=== PATIENT | female | born 1955 | race African-American/Black ===

== ENCOUNTER 2018-06-25 23:20 | Observation (INO) ==
[2018-06-26] MEDS ORDERED: PANTOPRAZOLE 40 MG VIAL IV STA (00:16)
[2018-06-26] MEDS ORDERED: SODIUM CHLORIDE 0.9% 500 ML IV STA (00:16)
[2018-06-26] MEDS ORDERED: ONDANSETRON 4 MG/2 ML VIAL IV STA (00:16)
[2018-06-26] MEDS ORDERED: MECLIZINE 25 MG TABLET PO STA (00:16)
[2018-06-26] MEDS ORDERED: ALUM/MAG/SIMETH/LIDO VISC 1:1 30 ML BOTTLE PO STA (00:16)
[2018-06-26 00:42] LABS: Basophils % 0.4 % (0.0-0.8); Eosinophils # 0.2 10*3/uL (0.0-0.87); Eosinophils % 2.4 % (0.00-10.9); Hematocrit 41.3 VOL% (35.7-47.0); Immature Granulocytes % 0.7 %; Immature Granulocytes Absolute 0.07 #; Lymphocytes # 2.1 10*3/uL (1.4-4.0); Lymphocytes % 21.4 % (21.3-54.2); Mean Corpuscular HGB Conc 31.5 GM/DL (32-36); Mean Corpuscular Hemoglobin 29 PG (27-34); Mean Corpuscular Volume 90.6 FL (87-102); Mean Platelet Volume 9.8 FL (9.6-12.0); Monocytes # 0.7 10*3/uL (0.11-0.8); Monocytes % 7.6 % (1.7-12.7); Neutrophils # 6.6 10*3/uL (1.4-7.4); Neutrophils % 67.5 % (38.7-73.9); Platelet Count 187 T/CUMM (130-400); Red Blood Count 4.56 MC/CUMM (3.8-5.5); Red Cell Distribution Width 12.5 % (9.3-17.3); White Blood Count 9.8 T/CUMM (4-12)
[2018-06-26 00:50] LABS: INR 0.9; PT Patient Result 9.8 SECS
[2018-06-26 01:02] LABS: Albumin 3.5 G/DL (3.4-5.0); Bilirubin,Total 0.4 MG/DL (0.2-1.0); Calcium 8.9 MG/DL (8.5-10.1); Potassium 3.5 MMOL/L (3.5-5.1); Total Protein 7.6 G/DL (6.4-8.3)
[2018-06-26 01:18] LABS: Apearance,Urine Slightly Hazy (Clear); Bacteria,Urine Occasional /HPF (Few); Bilirubin,Urine Negative (Negative); Blood, Urine Negative (Negative); Glucose,Urine (UA) Negative (Negative); Ketones,Urine Negative (Negative); Mucus,Urine Occasional /LPF (Occasional); Nitrite,Urine Negative (Negative); Protein,Urine Negative; RBC,Urine <1 /HPF (0-4); Squamous Epithelial Cell,Urine Occasional /HPF (0-10); Urine Color Straw (Yellow); Urine Specific Gravity 1.003 (1.001-1.035); Urine Urobilinogen < 2.0 EU/DL (0.2-1.0); WBC,Urine 1 /HPF (0-6)
[2018-06-26] MEDS ORDERED: GLUCAGON 1 MG VIAL IM PRN (02:30)
[2018-06-26] MEDS ORDERED: ONDANSETRON 4 MG/2 ML VIAL IV PRN (02:30)
[2018-06-26] MEDS ORDERED: ACETAMINOPHEN 325 MG TABLET PO PRN (02:30)
[2018-06-26] MEDS ORDERED: DEXTROSE 50% 25 GM/50 ML VIAL IV PRN (02:30)
[2018-06-26] MEDS ORDERED: MECLIZINE 25 MG TABLET PO PRN (02:44)
[2018-06-26] MEDS: SODIUM CHLORIDE 0.9% 1,000 ML IV SCH ×2 (03:33→21:41)
[2018-06-26 07:28] LABS: Basophils % 0.4 % (0.0-0.8); Eosinophils # 0.2 10*3/uL (0.0-0.87); Eosinophils % 2.6 % (0.00-10.9); Hematocrit 38.2 VOL% (35.7-47.0); Hemoglobin 12.4 GM/DL (12.0-16.0); Immature Granulocytes % 0.4 %; Immature Granulocytes Absolute 0.03 #; Lymphocytes % 36.5 % (21.3-54.2); Mean Corpuscular HGB Conc 32.5 GM/DL (32-36); Mean Corpuscular Hemoglobin 29 PG (27-34); Mean Corpuscular Volume 90.5 FL (87-102); Mean Platelet Volume 10.1 FL (9.6-12.0); Monocytes # 0.7 10*3/uL (0.11-0.8); Monocytes % 8.2 % (1.7-12.7); Neutrophils # 4.2 10*3/uL (1.4-7.4); Neutrophils % 51.9 % (38.7-73.9); Platelet Count 179 T/CUMM (130-400); Red Blood Count 4.22 MC/CUMM (3.8-5.5); Red Cell Distribution Width 12.5 % (9.3-17.3); White Blood Count 8.2 T/CUMM (4-12)
[2018-06-26 08:00] LABS: Calcium 8.8 MG/DL (8.5-10.1); Osmolality,Calculated 280.5 MOS/KG (273-304); Potassium 4.1 MMOL/L (3.5-5.1); Thyroid Stimulating Hormone 1.57 uIU/ml (0.358-3.74); VLDL CHOLESTEROL 39.6 MG/DL
[2018-06-26] MEDS: INSULIN LISPRO 100 UNIT/ML SUBCUT SCH ×4 (08:44→21:35)
[2018-06-26] MEDS: ENOXAPARIN 40 MG/0.4 ML SYRINGE SUBCUT SCH (08:44)
[2018-06-26] MEDS: PANTOPRAZOLE 40 MG TABLET PO SCH (16:54)
[2018-06-26] MEDS ORDERED: GABAPENTIN 100 MG CAPSULE PO SCH (21:00)
[2018-06-26] MEDS ORDERED: ATORVASTATIN 20 MG TABLET PO SCH (21:00)
[2018-06-26] MEDS ORDERED: ATORVASTATIN 80 MG TABLET PO SCH (21:00)
[2018-06-26] MEDS: SERTRALINE 50 MG TABLET PO SCH (21:34)
[2018-06-26] MEDS: TICAGRELOR 90 MG TABLET PO SCH (21:38)
[2018-06-27 06:43] LABS: Basophils % 0.5 % (0.0-0.8); Eosinophils # 0.2 10*3/uL (0.0-0.87); Eosinophils % 3.1 % (0.00-10.9); Hematocrit 41.1 VOL% (35.7-47.0); Hemoglobin 13.4 GM/DL (12.0-16.0); Immature Granulocytes % 0.3 %; Immature Granulocytes Absolute 0.02 #; Lymphocytes # 2.1 10*3/uL (1.4-4.0); Lymphocytes % 32.5 % (21.3-54.2); Mean Corpuscular HGB Conc 32.6 GM/DL (32-36); Mean Corpuscular Hemoglobin 30 PG (27-34); Mean Corpuscular Volume 90.7 FL (87-102); Mean Platelet Volume 10.1 FL (9.6-12.0); Monocytes # 0.5 10*3/uL (0.11-0.8); Monocytes % 7.5 % (1.7-12.7); Neutrophils # 3.7 10*3/uL (1.4-7.4); Neutrophils % 56.1 % (38.7-73.9); Platelet Count 178 T/CUMM (130-400); Red Blood Count 4.53 MC/CUMM (3.8-5.5); Red Cell Distribution Width 12.3 % (9.3-17.3); White Blood Count 6.5 T/CUMM (4-12)
[2018-06-27 07:04] LABS: Calcium 8.9 MG/DL (8.5-10.1); Osmolality,Calculated 285.4 MOS/KG (273-304); Potassium 3.9 MMOL/L (3.5-5.1)
[2018-06-27] MEDS ORDERED: NITROGLYCERIN SL 0.4 MG TABLET SL PRN (08:57)
[2018-06-27] MEDS ORDERED: CITALOPRAM 20 MG TABLET PO SCH (09:00)
[2018-06-27] MEDS ORDERED: ALBUTEROL 2.5 MG/3 ML NEB RESP TX PRN (09:30)
[2018-06-27] MEDS: INSULIN LISPRO 100 UNIT/ML SUBCUT SCH ×5 (09:52→21:27)
[2018-06-27] MEDS: ENOXAPARIN 40 MG/0.4 ML SYRINGE SUBCUT SCH (09:57)
[2018-06-27] MEDS: LORazepam 0.5 MG TABLET PO SCH ×2 (09:57→21:24)
[2018-06-27] MEDS: TRIAMCINOLONE 0.1% CREAM 15 GM TUBE TOP SCH ×2 (09:57→21:24)
[2018-06-27] MEDS: BUDESONIDE/FORMOTEROL 160-4.5 INHALER 6 GM INH SCH ×2 (09:57→21:24)
[2018-06-27] MEDS: ISOSORBIDE MONONITRATE 30 MG TABLET PO SCH (09:58)
[2018-06-27] MEDS: OMEGA 3 ACID ETHYL ESTERS 1 GM CAPSULE PO SCH (09:58)
[2018-06-27] MEDS: PANTOPRAZOLE 40 MG TABLET PO SCH (09:58)
[2018-06-27] MEDS: TICAGRELOR 90 MG TABLET PO SCH ×2 (09:58→21:25)
[2018-06-27] MEDS: MONTELUKAST 10 MG TABLET PO SCH (09:58)
[2018-06-27] MEDS: ATORVASTATIN 80 MG TABLET PO SCH (09:58)
[2018-06-27] MEDS: CITALOPRAM 20 MG TABLET PO SCH (09:58)
[2018-06-27] MEDS: sitaGLIPtin 25 MG TABLET PO SCH (09:58)
[2018-06-27] MEDS: TOPIRAMATE 25 MG TABLET PO SCH ×2 (09:59→21:24)
[2018-06-27] MEDS: ASPIRIN CHEW 81 MG TABLET PO SCH (09:59)
[2018-06-27] MEDS: INSULIN NPH/REGULAR 70/30 100 UNIT/ML SUBCUT SCH (09:59)
[2018-06-27] MEDS: LISINOPRIL 20 MG TABLET PO SCH (10:02)
[2018-06-27] MEDS: GABAPENTIN 300 MG CAPSULE PO SCH ×3 (10:02→21:29)
[2018-06-27] MEDS: SODIUM CHLORIDE 0.9% 1,000 ML IV SCH (12:29)
[2018-06-27] MEDS: MECLIZINE 25 MG TABLET PO SCH ×2 (16:42→21:24)
[2018-06-27] MEDS ORDERED: INSULIN NPH/REGULAR 70/30 100 UNIT/ML SUBCUT SCH (20:00)
[2018-06-27] MEDS: SERTRALINE 50 MG TABLET PO SCH (21:24)
[2018-06-28] MEDS: SODIUM CHLORIDE 0.9% 1,000 ML IV SCH (02:30)
[2018-06-28 08:22] VITALS: BP 148/91
[2018-06-28] MEDS ORDERED: sitaGLIPtin 100 MG TABLET PO SCH (09:01)
[2018-06-28] MEDS: ATORVASTATIN 80 MG TABLET PO SCH (09:20)
[2018-06-28] MEDS: TICAGRELOR 90 MG TABLET PO SCH (09:20)
[2018-06-28] MEDS: MONTELUKAST 10 MG TABLET PO SCH (09:20)
[2018-06-28] MEDS: PANTOPRAZOLE 40 MG TABLET PO SCH (09:20)
[2018-06-28] MEDS: LISINOPRIL 20 MG TABLET PO SCH (09:20)
[2018-06-28] MEDS: CITALOPRAM 20 MG TABLET PO SCH (09:20)
[2018-06-28] MEDS: OMEGA 3 ACID ETHYL ESTERS 1 GM CAPSULE PO SCH (09:21)
[2018-06-28] MEDS: MECLIZINE 25 MG TABLET PO SCH (09:21)
[2018-06-28] MEDS: TOPIRAMATE 25 MG TABLET PO SCH (09:21)
[2018-06-28] MEDS: LORazepam 0.5 MG TABLET PO SCH (09:21)
[2018-06-28] MEDS: ISOSORBIDE MONONITRATE 30 MG TABLET PO SCH (09:22)
[2018-06-28] MEDS: ASPIRIN CHEW 81 MG TABLET PO SCH (09:22)
[2018-06-28] MEDS: GABAPENTIN 300 MG CAPSULE PO SCH (09:22)
[2018-06-28] MEDS: INSULIN NPH/REGULAR 70/30 100 UNIT/ML SUBCUT SCH (09:22)
[2018-06-28] MEDS: TRIAMCINOLONE 0.1% CREAM 15 GM TUBE TOP SCH (09:23)
[2018-06-28] MEDS: BUDESONIDE/FORMOTEROL 160-4.5 INHALER 6 GM INH SCH (09:23)
[2018-06-28] MEDS: INSULIN LISPRO 100 UNIT/ML SUBCUT SCH (09:23)
[2018-06-28] MEDS: ENOXAPARIN 40 MG/0.4 ML SYRINGE SUBCUT SCH (09:32)
[2018-06-28] MEDS: sitaGLIPtin 25 MG TABLET PO SCH (09:33)
== END 2018-06-28 11:03 | disposition home or self-care (01) ==
LOC: EDBD → EDUNIT# → N.ED 23:20 → N.EDINP 23:20 → N.4E 06-26 02:57
PROVIDERS: ADMIT Internal Medicine; ATTEND Internal Medicine

== ENCOUNTER 2019-09-09 14:02 | Inpatient (IN) ==
[2019-09-09] MEDS ORDERED: ASPIRIN CHEW 81 MG TABLET PO STA (14:19)
[2019-09-09] MEDS ORDERED: NITROGLYCERIN SL 0.4 MG TABLET SL STA (14:19)
[2019-09-09] MEDS ORDERED: METOPROLOL TARTRATE 5 MG/5 ML VIAL IV STA (14:20)
[2019-09-09 14:39] LABS: Basophils % 0.3 % (0.0-0.8); Eosinophils # 0.2 10*3/uL (0.0-0.87); Eosinophils % 2.3 % (0.00-10.9); Hematocrit 47.2 VOL% (35.7-47.0); Hemoglobin 15.5 GM/DL (12.0-16.0); Immature Granulocytes % 0.4 %; Immature Granulocytes Absolute 0.03 #; Lymphocytes # 2.8 10*3/uL (1.4-4.0); Lymphocytes % 34.8 % (21.3-54.2); Mean Corpuscular HGB Conc 32.8 GM/DL (32-36); Mean Corpuscular Volume 88.9 FL (87-102); Mean Platelet Volume 9.6 FL (9.6-12.0); Monocytes % 6.1 % (1.7-12.7); Neutrophils % 56.1 % (38.7-73.9); Platelet Count 217 T/CUMM (130-400); Red Blood Count 5.31 MC/CUMM (3.8-5.5); Red Cell Distribution Width 12.3 % (9.3-17.3); White Blood Count 7.9 T/CUMM (4-12)
[2019-09-09 14:54] LABS: Albumin 4.1 G/DL (3.4-5.0); Bilirubin,Total 0.5 MG/DL (0.2-1.0); Calcium 9.7 MG/DL (8.5-10.1); Osmolality,Calculated 278.7 MOS/KG (273-304); Total Protein 8.9 G/DL (6.4-8.3)
[2019-09-09] MEDS ORDERED: ONDANSETRON 4 MG/2 ML VIAL IV PRN (15:51)
[2019-09-09] MEDS ORDERED: DOCUSATE SODIUM 100 MG CAPSULE PO PRN (15:51)
[2019-09-09] MEDS ORDERED: ACETAMINOPHEN 325 MG TABLET PO PRN (15:51)
[2019-09-09] MEDS ORDERED: hydrALAZINE 20 MG/1 ML VIAL IV PRN (16:57)
[2019-09-09 17:03] LABS: Risk Ratio 6.05; VLDL CHOLESTEROL 53.2 MG/DL
[2019-09-09] MEDS ORDERED: NITROGLYCERIN SL 0.4 MG TABLET SL PRN ×2 (17:06→17:25)
[2019-09-09 17:10] LABS: Thyroid Stimulating Hormone 2.59 uIU/ml (0.358-3.74)
[2019-09-09] MEDS ORDERED: DEXTROSE 50% 25 GM/50 ML VIAL IV PRN (17:14)
[2019-09-09] MEDS ORDERED: GLUCAGON 1 MG VIAL IM PRN (17:14)
[2019-09-09] MEDS ORDERED: ALBUTEROL 2.5 MG/3 ML NEB RESP TX PRN (17:25)
[2019-09-09] MEDS: PANTOPRAZOLE 40 MG TABLET PO SCH (17:32)
[2019-09-09 20:49] LABS: Apearance,Urine CLEAR (Clear); Bacteria,Urine Occasional /HPF (Few); Bilirubin,Urine Negative (Negative); Blood, Urine Negative (Negative); Glucose,Urine (UA) Negative (Negative); Hyaline Casts,Urine 1 /LPF (0-3); Ketones,Urine Negative (Negative); Mucus,Urine Occasional /LPF (Occasional); Nitrite,Urine Negative (Negative); Protein,Urine Negative; RBC,Urine 2 /HPF (0-4); Squamous Epithelial Cell,Urine Occasional /HPF (0-10); Urine Color Yellow (Yellow); Urine Specific Gravity 1.011 (1.001-1.035); Urine Urobilinogen < 2.0 EU/DL (0.2-1.0); WBC,Urine 1 /HPF (0-6)
[2019-09-09] MEDS: INSULIN REGULAR 100 UNIT/ML SUBCUT SCH (21:23)
[2019-09-09] MEDS: TICAGRELOR 90 MG TABLET PO SCH (21:35)
[2019-09-09] MEDS: BUDESONIDE/FORMOTEROL 160-4.5 INHALER 6 GM INH SCH (21:35)
[2019-09-09] MEDS: GABAPENTIN 300 MG CAPSULE PO SCH (21:35)
[2019-09-09] MEDS: TOPIRAMATE 25 MG TABLET PO SCH (21:35)
[2019-09-09] MEDS: METOPROLOL TARTRATE 50 MG TABLET PO SCH (21:35)
[2019-09-10 06:43] LABS: Basophils % 0.3 % (0.0-0.8); Eosinophils # 0.2 10*3/uL (0.0-0.87); Hematocrit 41.9 VOL% (35.7-47.0); Hemoglobin 13.9 GM/DL (12.0-16.0); Immature Granulocytes % 0.1 %; Immature Granulocytes Absolute 0.01 #; Lymphocytes # 2.9 10*3/uL (1.4-4.0); Lymphocytes % 37.3 % (21.3-54.2); Mean Corpuscular HGB Conc 33.2 GM/DL (32-36); Mean Platelet Volume 9.9 FL (9.6-12.0); Monocytes % 6.8 % (1.7-12.7); Neutrophils % 52.5 % (38.7-73.9); Platelet Count 216 T/CUMM (130-400); Red Blood Count 4.71 MC/CUMM (3.8-5.5); Red Cell Distribution Width 12.4 % (9.3-17.3); White Blood Count 7.8 T/CUMM (4-12)
[2019-09-10 06:58] LABS: Calcium 9.2 MG/DL (8.5-10.1); Osmolality,Calculated 290.3 MOS/KG (273-304)
[2019-09-10] MEDS: INSULIN REGULAR 100 UNIT/ML SUBCUT SCH ×4 (08:57→21:16)
[2019-09-10] MEDS: BUDESONIDE/FORMOTEROL 160-4.5 INHALER 6 GM INH SCH ×2 (08:57→21:16)
[2019-09-10] MEDS: MULTIVITAMIN (CENTRUM) TABLET PO SCH (08:59)
[2019-09-10] MEDS: TICAGRELOR 90 MG TABLET PO SCH ×2 (08:59→20:49)
[2019-09-10] MEDS: METOPROLOL TARTRATE 50 MG TABLET PO SCH ×2 (09:00→20:49)
[2019-09-10] MEDS: ATORVASTATIN 80 MG TABLET PO SCH (09:00)
[2019-09-10] MEDS ORDERED: LOSARTAN 50 MG TABLET PO SCH (09:00)
[2019-09-10] MEDS: GABAPENTIN 300 MG CAPSULE PO SCH ×2 (09:00→20:49)
[2019-09-10] MEDS: TOPIRAMATE 25 MG TABLET PO SCH ×2 (09:01→20:49)
[2019-09-10] MEDS: SERTRALINE 50 MG TABLET PO SCH (09:01)
[2019-09-10] MEDS: PANTOPRAZOLE 40 MG TABLET PO SCH (09:02)
[2019-09-10] MEDS: ASPIRIN EC 81 MG TABLET PO SCH (09:18)
[2019-09-10] MEDS: LIRAGLUTIDE SUBCUT SCH (09:18)
[2019-09-10] MEDS: INSULIN DEGLUDEC SUBCUT SCH (09:18)
[2019-09-10] MEDS ORDERED: GLUCAGON 1 MG VIAL IM PRN (11:05)
[2019-09-10] MEDS ORDERED: DEXTROSE 10% 250 ML BAG IV PRN (11:05)
[2019-09-10] MEDS: LOSARTAN 50 MG TABLET PO SCH (20:49)
[2019-09-11] MEDS: BUDESONIDE/FORMOTEROL 160-4.5 INHALER 6 GM INH SCH (08:30)
[2019-09-11] MEDS: INSULIN DEGLUDEC SUBCUT SCH (08:31)
[2019-09-11] MEDS: ASPIRIN EC 81 MG TABLET PO SCH (08:31)
[2019-09-11] MEDS: METOPROLOL TARTRATE 50 MG TABLET PO SCH (08:31)
[2019-09-11] MEDS: PANTOPRAZOLE 40 MG TABLET PO SCH (08:31)
[2019-09-11] MEDS: TOPIRAMATE 25 MG TABLET PO SCH (08:31)
[2019-09-11] MEDS: LOSARTAN 50 MG TABLET PO SCH (08:31)
[2019-09-11] MEDS: LIRAGLUTIDE SUBCUT SCH (08:31)
[2019-09-11] MEDS: SERTRALINE 50 MG TABLET PO SCH (08:32)
[2019-09-11] MEDS: ATORVASTATIN 80 MG TABLET PO SCH (08:32)
[2019-09-11] MEDS: GABAPENTIN 300 MG CAPSULE PO SCH (08:32)
[2019-09-11] MEDS: TICAGRELOR 90 MG TABLET PO SCH (08:32)
[2019-09-11] MEDS: MULTIVITAMIN (CENTRUM) TABLET PO SCH (08:32)
[2019-09-11] MEDS: INSULIN REGULAR 100 UNIT/ML SUBCUT SCH (08:34)
[2019-09-11] MEDS ORDERED: amLODIPine 5 MG TABLET PO SCH (09:00)
[2019-09-11 11:49] VITALS: BP 140/76
== END 2019-09-11 12:11 | disposition home or self-care (01) | DRG 313 ==
LOC: EDBD → EDUNIT# → N.ED 14:02 → N.EDINP 15:51 → N.TELES 16:10
PROVIDERS: ADMIT Hospitalist; ATTEND Hospitalist

== ENCOUNTER 2020-07-18 11:38 | Observation (INO) ==
[2020-07-18] MEDS ORDERED: NITROGLYCERIN SL 0.4 MG TABLET SL PRN ×2 (11:52→13:52)
[2020-07-18] MEDS ORDERED: NITROGLYCERIN 2% OINT 1 INCH/GM PACK TOP STA (11:52)
[2020-07-18] MEDS ORDERED: FUROSEMIDE 40 MG/4 ML VIAL IV STA (11:54)
[2020-07-18 12:34] LABS: Basophils # 0.1 10*3/uL (0.0-0.2); Basophils % 0.6 % (0.0-0.8); Eosinophils # 0.2 10*3/uL (0.0-0.87); Eosinophils % 2.8 % (0.00-10.9); Hematocrit 43.2 VOL% (35.7-47.0); Hemoglobin 14.5 GM/DL (12.0-16.0); Immature Granulocytes % 0.5 %; Immature Granulocytes Absolute 0.04 #; Lymphocytes # 2.4 10*3/uL (1.4-4.0); Lymphocytes % 29.3 % (21.3-54.2); Mean Corpuscular HGB Conc 33.6 GM/DL (32-36); Mean Corpuscular Volume 89.8 FL (87-102); Mean Platelet Volume 9.9 FL (9.6-12.0); Monocytes % 6.3 % (1.7-12.7); Neutrophils % 60.5 % (38.7-73.9); Platelet Count 214 T/CUMM (130-400); Red Blood Count 4.81 MC/CUMM (3.8-5.5); Red Cell Distribution Width 12.5 % (9.3-17.3); White Blood Count 8.3 T/CUMM (4-12)
[2020-07-18 13:09] LABS: Albumin 3.7 G/DL (3.4-5.0); Bilirubin,Total 0.7 MG/DL (0.2-1.0); Calcium 9.4 MG/DL (8.5-10.1); Osmolality,Calculated 289.4 MOS/KG (273-304); Total Protein 8.5 G/DL (6.4-8.3)
[2020-07-18 13:23] LABS: INR 0.9; Partial Thromboplastin Time 25.9 SECS (23.9-33.8)
[2020-07-18 13:26] LABS: Troponin I < 0.015 NG/ML (0.00-0.045)
[2020-07-18] MEDS ORDERED: ACETAMINOPHEN 325 MG TABLET PO PRN (13:50)
[2020-07-18] MEDS ORDERED: DEXTROSE 50% 25 GM/50 ML VIAL IV PRN (13:50)
[2020-07-18] MEDS ORDERED: ONDANSETRON 4 MG/2 ML VIAL IV PRN (13:50)
[2020-07-18] MEDS ORDERED: GLUCAGON 1 MG VIAL IM PRN (13:50)
[2020-07-18] MEDS ORDERED: MONTELUKAST 10 MG TABLET PO PRN (13:52)
[2020-07-18] MEDS ORDERED: METHOCARBAMOL 750 MG TABLET PO PRN (13:52)
[2020-07-18] MEDS ORDERED: INSULIN REGULAR 100 UNIT/ML IV STA (14:02)
[2020-07-18 14:30] LABS: Bacteria,Urine Occasional /HPF (Few); Bilirubin,Urine Negative (Negative); Blood, Urine Negative (Negative); Glucose,Urine (UA) >=500 mg/dL (Negative); Ketones,Urine Negative (Negative); Nitrite,Urine Negative (Negative); Protein,Urine Negative; RBC,Urine 2 /HPF (0-4); Squamous Epithelial Cell,Urine Occasional /HPF (0-10); Urine Appearance CLEAR (Clear); Urine Color Colorless (Yellow); Urine Specific Gravity 1.009 (1.001-1.035); Urine Urobilinogen < 2.0 EU/DL (0.2-1.0); WBC,Urine 3 /HPF (0-6)
[2020-07-18] MEDS: ENOXAPARIN 40 MG/0.4 ML SYRINGE SUBCUT SCH (14:45)
[2020-07-18] MEDS: SODIUM CHLORIDE 0.9% 1,000 ML IV SCH (14:46)
[2020-07-18] MEDS: INSULIN LISPRO 100 UNIT/ML SUBCUT SCH ×2 (16:19→21:10)
[2020-07-18] MEDS: NITROGLYCERIN 2% OINT 1 INCH/GM PACK TOP SCH (17:48)
[2020-07-18] MEDS ORDERED: ATORVASTATIN 80 MG TABLET PO SCH (21:00)
[2020-07-18] MEDS: PANTOPRAZOLE 40 MG TABLET PO SCH (21:09)
[2020-07-18] MEDS: SACUBITRIL/VALSARTAN 49-51 MG TABLET PO SCH (21:09)
[2020-07-18] MEDS: GABAPENTIN 300 MG CAPSULE PO SCH (21:09)
[2020-07-19] MEDS: NITROGLYCERIN 2% OINT 1 INCH/GM PACK TOP SCH ×3 (01:43→14:33)
[2020-07-19] MEDS: SODIUM CHLORIDE 0.9% 1,000 ML IV SCH (02:35)
[2020-07-19 05:33] LABS: Basophils % 0.4 % (0.0-0.8); Eosinophils # 0.3 10*3/uL (0.0-0.87); Hematocrit 45.4 VOL% (35.7-47.0); Hemoglobin 15.1 GM/DL (12.0-16.0); Immature Granulocytes % 0.8 %; Immature Granulocytes Absolute 0.07 #; Lymphocytes # 3.3 10*3/uL (1.4-4.0); Lymphocytes % 35.6 % (21.3-54.2); Mean Corpuscular HGB Conc 33.3 GM/DL (32-36); Mean Corpuscular Volume 89.4 FL (87-102); Mean Platelet Volume 9.9 FL (9.6-12.0); Monocytes % 6.4 % (1.7-12.7); Neutrophils % 53.8 % (38.7-73.9); Platelet Count 234 T/CUMM (130-400); Red Blood Count 5.08 MC/CUMM (3.8-5.5); Red Cell Distribution Width 12.3 % (9.3-17.3); White Blood Count 9.1 T/CUMM (4-12)
[2020-07-19 05:59] LABS: Calcium 9.5 MG/DL (8.5-10.1); Osmolality,Calculated 288.1 MOS/KG (273-304); Risk Ratio 9.43; VLDL CHOLESTEROL 150.2 MG/DL
[2020-07-19 06:07] LABS: Eosinophils 3 % (0-10); Lymphocytes 39 % (20-55); Platelet Estimate Adequate; Segmented Neutrophils 54 % (50-85); Total Cells Counted 100
[2020-07-19] MEDS ORDERED: DIAZEPAM 5 MG TABLET PO ONE (08:09)
[2020-07-19] MEDS ORDERED: POTASSIUM CHLORIDE RIDER 10 MEQ in PREMIX 1 EACH IV PRN (08:09)
[2020-07-19] MEDS ORDERED: MAGNESIUM SULF RIDER 2 GM in PREMIX 1 EACH IV PRN (08:09)
[2020-07-19] MEDS ORDERED: diphenhydrAMINE CAP 25 MG CAPSULE PO ONE (08:09)
[2020-07-19] MEDS: CETIRIZINE 10 MG TABLET PO SCH (08:38)
[2020-07-19] MEDS: SERTRALINE 50 MG TABLET PO SCH (08:38)
[2020-07-19] MEDS: SACUBITRIL/VALSARTAN 49-51 MG TABLET PO SCH ×2 (08:38→21:49)
[2020-07-19] MEDS: NEBIVOLOL 10 MG TABLET PO SCH (08:38)
[2020-07-19] MEDS: GABAPENTIN 300 MG CAPSULE PO SCH ×2 (08:38→21:49)
[2020-07-19] MEDS: ASCORBIC ACID 500 MG TABLET PO SCH (08:39)
[2020-07-19] MEDS: INSULIN NPH/REGULAR 70/30 100 UNIT/ML SUBCUT SCH (08:39)
[2020-07-19] MEDS: ASPIRIN EC 81 MG TABLET PO SCH (08:39)
[2020-07-19] MEDS: PANTOPRAZOLE 40 MG TABLET PO SCH ×2 (08:39→21:50)
[2020-07-19] MEDS: CLOPIDOGREL 75 MG TABLET PO SCH (08:39)
[2020-07-19] MEDS: INSULIN LISPRO 100 UNIT/ML SUBCUT SCH ×4 (08:40→21:50)
[2020-07-19] MEDS ORDERED: LIDOCAINE 1% 20 ML VIAL ONE (08:52)
[2020-07-19] MEDS ORDERED: HEPARIN/NACL 0.9% 2 UNITS/ML 1,000 ML IV ONE (08:52)
[2020-07-19] MEDS: sitaGLIPtin 100 MG TABLET PO SCH (08:56)
[2020-07-19] MEDS ORDERED: MIDAZOLAM 2 MG/2 ML VIAL ONE ×2 (09:05→09:27)
[2020-07-19] MEDS ORDERED: fentaNYL 100 MCG/2 ML VIAL ONE (09:05)
[2020-07-19] MEDS ORDERED: BIVALIRUDIN 250 MG VIAL IV ONE (09:38)
[2020-07-19] MEDS ORDERED: HEPARIN/NACL 0.9% 2 UNITS/ML 500 ML IV ONE (09:58)
[2020-07-19] MEDS ORDERED: CLOPIDOGREL 75 MG TABLET ONE (10:19)
[2020-07-19] MEDS: SODIUM CHLORIDE 0.45% 1,000 ML IV SCH ×2 (13:45→21:50)
[2020-07-19] MEDS: FENOFIBRATE 160 MG TABLET PO SCH (14:09)
[2020-07-19] MEDS: ISOSORBIDE MONONITRATE 30 MG TABLET PO SCH (14:09)
[2020-07-19] MEDS: ENOXAPARIN 40 MG/0.4 ML SYRINGE SUBCUT SCH (14:09)
[2020-07-19] MEDS ORDERED: ROSUVASTATIN 20 MG TABLET PO SCH (21:00)
[2020-07-20 05:40] LABS: Basophils % 0.3 % (0.0-0.8); Eosinophils # 0.3 10*3/uL (0.0-0.87); Hematocrit 40.3 VOL% (35.7-47.0); Hemoglobin 13.6 GM/DL (12.0-16.0); Immature Granulocytes % 0.5 %; Immature Granulocytes Absolute 0.05 #; Lymphocytes # 2.7 10*3/uL (1.4-4.0); Lymphocytes % 28.1 % (21.3-54.2); Mean Corpuscular HGB Conc 33.7 GM/DL (32-36); Monocytes % 7.4 % (1.7-12.7); Neutrophils % 60.7 % (38.7-73.9); Platelet Count 201 T/CUMM (130-400); Red Blood Count 4.53 MC/CUMM (3.8-5.5); Red Cell Distribution Width 12.5 % (9.3-17.3); White Blood Count 9.6 T/CUMM (4-12)
[2020-07-20 05:59] LABS: Calcium 8.8 MG/DL (8.5-10.1); Osmolality,Calculated 282.8 MOS/KG (273-304)
[2020-07-20 06:00] LABS: Calcium 8.8 MG/DL (8.5-10.1)
[2020-07-20] MEDS: SODIUM CHLORIDE 0.45% 1,000 ML IV SCH (06:15)
[2020-07-20 08:02] VITALS: BP 159/72
[2020-07-20] MEDS: CLOPIDOGREL 75 MG TABLET PO SCH (09:20)
[2020-07-20] MEDS: INSULIN NPH/REGULAR 70/30 100 UNIT/ML SUBCUT SCH (09:20)
[2020-07-20] MEDS: INSULIN LISPRO 100 UNIT/ML SUBCUT SCH (09:20)
[2020-07-20] MEDS: NEBIVOLOL 10 MG TABLET PO SCH (09:21)
[2020-07-20] MEDS: CETIRIZINE 10 MG TABLET PO SCH (09:21)
[2020-07-20] MEDS: GABAPENTIN 300 MG CAPSULE PO SCH (09:21)
[2020-07-20] MEDS: ASCORBIC ACID 500 MG TABLET PO SCH (09:21)
[2020-07-20] MEDS: ASPIRIN EC 81 MG TABLET PO SCH (09:21)
[2020-07-20] MEDS: PANTOPRAZOLE 40 MG TABLET PO SCH (09:21)
[2020-07-20] MEDS: sitaGLIPtin 100 MG TABLET PO SCH (09:21)
[2020-07-20] MEDS: ISOSORBIDE MONONITRATE 30 MG TABLET PO SCH (09:21)
[2020-07-20] MEDS: FENOFIBRATE 160 MG TABLET PO SCH (09:22)
[2020-07-20] MEDS: SERTRALINE 50 MG TABLET PO SCH (09:22)
[2020-07-20] MEDS: SACUBITRIL/VALSARTAN 49-51 MG TABLET PO SCH (09:22)
== END 2020-07-20 11:47 | disposition home health service (06) ==
LOC: EDBD → EDUNIT# → N.EDINP 11:38 → N.ED 11:38 → N.TELES 15:09
PROVIDERS: ADMIT Family Medicine; ATTEND Family Medicine
PROC: CLCCHCL (ICD-10-PCS; 2020-07-19 09:15)

== ENCOUNTER 2021-11-09 14:28 | Inpatient (IN) ==
[2021-11-09] MEDS ORDERED: FUROSEMIDE 100 MG/10 ML VIAL IV STA (15:22)
[2021-11-09] MEDS ORDERED: ALBUTEROL/IPRATROPIUM 3 ML NEB RESP TX STA (15:22)
[2021-11-09 15:35] LABS: Basophils % 0.2 % (0.0-0.8); Eosinophils # 0.1 10*3/uL (0.0-0.87); Eosinophils % 0.5 % (0.00-10.9); Hematocrit 48.7 VOL% (35.7-47.0); Hemoglobin 16.1 GM/DL (12.0-16.0); Immature Granulocytes % 0.5 %; Immature Granulocytes Absolute 0.07 #; Lymphocytes % 19.9 % (21.3-54.2); Mean Corpuscular HGB Conc 33.1 GM/DL (32-36); Mean Corpuscular Volume 90.7 FL (87-102); Mean Platelet Volume 10.8 FL (9.6-12.0); Monocytes % 6.1 % (1.7-12.7); Neutrophils % 72.8 % (38.7-73.9); Platelet Count 224 T/CUMM (130-400); Red Blood Count 5.37 MC/CUMM (3.8-5.5); Red Cell Distribution Width 12.4 % (9.3-17.3); White Blood Count 14.9 T/CUMM (4-12)
[2021-11-09 15:41] LABS: INR 0.9; Osmolality,Calculated 275.5 MOS/KG (273-304); PT Patient Result 10.4 SECS (10.5-12.0); Partial Thromboplastin Time 25.4 SECS (23.8-32.1); Potassium 4.3 MMOL/L (3.5-5.1); Total Protein 8.7 G/DL (6.4-8.2)
[2021-11-09] MEDS ORDERED: cefTRIAXone 1,000 MG in SODIUM CHLORIDE 0.9% 100 ML IV STA (16:47)
[2021-11-09] MEDS ORDERED: SODIUM CHLORIDE 0.9% 1,000 ML IV STA (16:47)
[2021-11-09 17:12] LABS: Bacteria,Urine Occasional /HPF (Few); Mucus,Urine Occasional /LPF (Occasional); RBC,Urine 1 /HPF (0-4); Squamous Epithelial Cell,Urine Occasional /HPF (0-10)
[2021-11-09 17:14] LABS: Glucose,Urine (UA) Negative (Negative); Protein,Urine Negative; Urine Appearance Clear (Clear); Urine Color Yellow (Yellow); Urine Specific Gravity 1.015 (1.001-1.035)
[2021-11-09 17:15] LABS: Bilirubin,Urine Negative (Negative); Blood, Urine Negative (Negative); Ketones,Urine Negative (Negative); Nitrite,Urine Positive (Negative); Urine Urobilinogen 0.2 EU/DL (<2.0)
[2021-11-09] MEDS ORDERED: MORPHINE 4 MG/1 ML VIAL IV PRN (20:11)
[2021-11-09] MEDS ORDERED: hydrALAZINE 20 MG/1 ML VIAL IV PRN (20:11)
[2021-11-09] MEDS ORDERED: ONDANSETRON 4 MG/2 ML VIAL IV PRN (20:11)
[2021-11-09] MEDS ORDERED: ACETAMINOPHEN 325 MG TABLET PO PRN (20:11)
[2021-11-09] MEDS ORDERED: GLUCAGON 1 MG VIAL IM PRN (20:11)
[2021-11-09] MEDS ORDERED: MONTELUKAST 10 MG TABLET PO PRN (20:16)
[2021-11-09] MEDS ORDERED: NITROGLYCERIN SL 0.4 MG TABLET SL PRN (20:16)
[2021-11-09] MEDS ORDERED: DEXTROSE 10% 250 ML BAG IV PRN (20:28)
[2021-11-09 21:27] LABS: Thyroid Stimulating Hormone 2.64 uIU/ml (0.358-3.74)
[2021-11-09] MEDS: ROSUVASTATIN 20 MG TABLET PO SCH (22:05)
[2021-11-09] MEDS: APIXABAN 5 MG TABLET PO SCH (22:05)
[2021-11-09] MEDS: INSULIN REGULAR 100 UNIT/ML SUBCUT SCH (22:05)
[2021-11-09] MEDS: SACUBITRIL/VALSARTAN 49-51 MG TABLET PO SCH (22:05)
[2021-11-09] MEDS: GABAPENTIN 300 MG CAPSULE PO SCH (22:05)
[2021-11-09] MEDS: AZITHROMYCIN INJ 500 MG in SODIUM CHLORIDE 0.9% 250 ML IV SCH (22:05)
[2021-11-09] MEDS: TOPIRAMATE 25 MG TABLET PO SCH (22:05)
[2021-11-10] MEDS: ALBUTEROL 2.5 MG/3 ML NEB RESP TX SCH ×4 (00:55→19:26)
[2021-11-10 04:45] LABS: Basophils # 0.1 10*3/uL (0.0-0.2); Basophils % 0.4 % (0.0-0.8); Eosinophils # 0.1 10*3/uL (0.0-0.87); Hematocrit 42.5 VOL% (35.7-47.0); Hemoglobin 14.4 GM/DL (12.0-16.0); Immature Granulocytes % 0.3 %; Immature Granulocytes Absolute 0.04 #; Lymphocytes # 4.2 10*3/uL (1.4-4.0); Lymphocytes % 34.3 % (21.3-54.2); Mean Corpuscular HGB Conc 33.9 GM/DL (32-36); Mean Corpuscular Volume 88.9 FL (87-102); Monocytes % 8.6 % (1.7-12.7); Neutrophils % 55.4 % (38.7-73.9); Platelet Count 182 T/CUMM (130-400); Red Blood Count 4.78 MC/CUMM (3.8-5.5); Red Cell Distribution Width 12.3 % (9.3-17.3); White Blood Count 12.2 T/CUMM (4-12)
[2021-11-10 05:15] LABS: Bilirubin,Total 0.7 MG/DL (0.20-1.00); Osmolality,Calculated 275.4 MOS/KG (273-304); Potassium 3.4 MMOL/L (3.5-5.1); Risk Ratio 4.5; Total Protein 7.8 G/DL (6.4-8.2); VLDL Cholesterol 61.2 MG/DL
[2021-11-10] MEDS: INSULIN REGULAR 100 UNIT/ML SUBCUT SCH ×4 (07:39→21:14)
[2021-11-10] MEDS ORDERED: POTASSIUM CHLORIDE RIDER 10 MEQ/100 ML PREMIX IV PRN (08:20)
[2021-11-10] MEDS ORDERED: MAGNESIUM SULF RIDER 2 GM/50 ML PREMIX IV PRN (08:20)
[2021-11-10] MEDS ORDERED: SODIUM CHLORIDE 0.45% 1,000 ML IV SCH (08:30)
[2021-11-10] MEDS: FUROSEMIDE 40 MG/4 ML VIAL IV SCH ×2 (08:47→16:40)
[2021-11-10] MEDS: ASPIRIN EC 81 MG TABLET PO SCH (08:48)
[2021-11-10] MEDS: NEBIVOLOL 10 MG TABLET PO SCH (08:48)
[2021-11-10] MEDS: ISOSORBIDE MONONITRATE 30 MG TABLET PO SCH (08:49)
[2021-11-10] MEDS: SACUBITRIL/VALSARTAN 49-51 MG TABLET PO SCH ×2 (08:49→21:59)
[2021-11-10] MEDS: GABAPENTIN 300 MG CAPSULE PO SCH ×2 (08:49→21:14)
[2021-11-10] MEDS: PANTOPRAZOLE 40 MG TABLET PO SCH (08:50)
[2021-11-10] MEDS: ASCORBIC ACID 500 MG TABLET PO SCH (08:50)
[2021-11-10] MEDS: CLOPIDOGREL 75 MG TABLET PO SCH (08:50)
[2021-11-10] MEDS: TOPIRAMATE 25 MG TABLET PO SCH ×2 (08:50→22:14)
[2021-11-10] MEDS ORDERED: diphenhydrAMINE CAP 25 MG CAPSULE PO ONE (12:30)
[2021-11-10] MEDS ORDERED: DIAZEPAM 5 MG TABLET PO ONE (12:30)
[2021-11-10] MEDS ORDERED: POTASSIUM CHLORIDE 20 MEQ TABLET PO PRN (12:39)
[2021-11-10] MEDS ORDERED: HEPARIN/NACL 0.9% 2 UNITS/ML 2,000 UNIT/1,000 ML BAG IV ONE (13:13)
[2021-11-10] MEDS ORDERED: LIDOCAINE 1% 20 ML VIAL ONE (13:13)
[2021-11-10] MEDS ORDERED: MIDAZOLAM 2 MG/2 ML VIAL ONE (13:19)
[2021-11-10] MEDS ORDERED: fentaNYL 100 MCG/2 ML VIAL ONE (13:19)
[2021-11-10] MEDS: SERTRALINE 50 MG TABLET PO SCH (15:25)
[2021-11-10] MEDS: FENOFIBRATE 160 MG TABLET PO SCH (15:25)
[2021-11-10] MEDS: cefTRIAXone 1,000 MG in SODIUM CHLORIDE 0.9% 100 ML IV SCH (19:43)
[2021-11-10] MEDS: ROSUVASTATIN 20 MG TABLET PO SCH (21:14)
[2021-11-10] MEDS: AZITHROMYCIN INJ 500 MG in SODIUM CHLORIDE 0.9% 250 ML IV SCH (21:14)
[2021-11-11] MEDS: ALBUTEROL 2.5 MG/3 ML NEB RESP TX SCH ×4 (00:50→19:06)
[2021-11-11 07:10] LABS: Basophils % 0.4 % (0.0-0.8); Eosinophils # 0.3 10*3/uL (0.0-0.87); Eosinophils % 2.5 % (0.00-10.9); Hematocrit 45.1 VOL% (35.7-47.0); Hemoglobin 14.2 GM/DL (12.0-16.0); Immature Granulocytes % 0.4 %; Immature Granulocytes Absolute 0.04 #; Lymphocytes # 3.4 10*3/uL (1.4-4.0); Lymphocytes % 32.9 % (21.3-54.2); Mean Corpuscular HGB Conc 31.5 GM/DL (32-36); Mean Corpuscular Volume 94.9 FL (87-102); Mean Platelet Volume 10.6 FL (9.6-12.0); Monocytes % 6.8 % (1.7-12.7); Platelet Count 152 T/CUMM (130-400); Red Blood Count 4.75 MC/CUMM (3.8-5.5); Red Cell Distribution Width 12.5 % (9.3-17.3); White Blood Count 10.3 T/CUMM (4-12)
[2021-11-11 07:24] LABS: Osmolality,Calculated 274.2 MOS/KG (273-304); Potassium 3.9 MMOL/L (3.5-5.1)
[2021-11-11] MEDS: TOPIRAMATE 25 MG TABLET PO SCH ×2 (09:16→20:23)
[2021-11-11] MEDS: ASPIRIN EC 81 MG TABLET PO SCH (09:16)
[2021-11-11] MEDS: ISOSORBIDE MONONITRATE 30 MG TABLET PO SCH (09:16)
[2021-11-11] MEDS: NEBIVOLOL 10 MG TABLET PO SCH (09:16)
[2021-11-11] MEDS: GABAPENTIN 300 MG CAPSULE PO SCH ×2 (09:16→20:23)
[2021-11-11] MEDS: SACUBITRIL/VALSARTAN 49-51 MG TABLET PO SCH (09:16)
[2021-11-11] MEDS: SERTRALINE 50 MG TABLET PO SCH (09:16)
[2021-11-11] MEDS: FENOFIBRATE 160 MG TABLET PO SCH (09:16)
[2021-11-11] MEDS: ASCORBIC ACID 500 MG TABLET PO SCH (09:17)
[2021-11-11] MEDS: PANTOPRAZOLE 40 MG TABLET PO SCH (09:17)
[2021-11-11] MEDS: FUROSEMIDE 40 MG/4 ML VIAL IV SCH ×2 (09:17→16:31)
[2021-11-11] MEDS: CLOPIDOGREL 75 MG TABLET PO SCH (09:17)
[2021-11-11] MEDS: INSULIN REGULAR 100 UNIT/ML SUBCUT SCH ×4 (09:19→20:24)
[2021-11-11] MEDS: cefTRIAXone 1,000 MG in SODIUM CHLORIDE 0.9% 100 ML IV SCH (18:27)
[2021-11-11] MEDS: APIXABAN 5 MG TABLET PO SCH (20:23)
[2021-11-11] MEDS: ROSUVASTATIN 20 MG TABLET PO SCH (20:23)
[2021-11-11] MEDS ORDERED: SACUBITRIL/VALSARTAN 49-51 MG TABLET PO SCH (21:00)
[2021-11-12] MEDS: ALBUTEROL 2.5 MG/3 ML NEB RESP TX SCH ×4 (00:42→19:29)
[2021-11-12] MEDS ORDERED: LORazepam 2 MG/1 ML VIAL IV ONE (01:11)
[2021-11-12] MEDS ORDERED: ALBUTEROL 2.5 MG/3 ML NEB RESP TX PRN (02:26)
[2021-11-12 05:16] LABS: Basophils % 0.2 % (0.0-0.8); Eosinophils # 0.1 10*3/uL (0.0-0.87); Eosinophils % 1.5 % (0.00-10.9); Hematocrit 37.6 VOL% (35.7-47.0); Hemoglobin 12.3 GM/DL (12.0-16.0); Immature Granulocytes % 0.4 %; Immature Granulocytes Absolute 0.04 #; Lymphocytes # 2.7 10*3/uL (1.4-4.0); Lymphocytes % 27.6 % (21.3-54.2); Mean Corpuscular HGB Conc 32.7 GM/DL (32-36); Mean Platelet Volume 10.8 FL (9.6-12.0); Neutrophils % 63.3 % (38.7-73.9); Platelet Count 189 T/CUMM (130-400); Red Blood Count 4.13 MC/CUMM (3.8-5.5); Red Cell Distribution Width 12.1 % (9.3-17.3); White Blood Count 9.6 T/CUMM (4-12)
[2021-11-12 05:33] LABS: Calcium 8.6 MG/DL (8.5-10.1); Osmolality,Calculated 278.2 MOS/KG (273-304); Potassium 3.6 MMOL/L (3.5-5.1)
[2021-11-12] MEDS ORDERED: SACUBITRIL/VALSARTAN 49-51 MG TABLET PO SCH (09:00)
[2021-11-12] MEDS ORDERED: FUROSEMIDE 40 MG TABLET PO SCH ×2 (09:00)
[2021-11-12] MEDS: NEBIVOLOL 10 MG TABLET PO SCH (09:47)
[2021-11-12] MEDS: PANTOPRAZOLE 40 MG TABLET PO SCH (09:47)
[2021-11-12] MEDS: CLOPIDOGREL 75 MG TABLET PO SCH (09:47)
[2021-11-12] MEDS: FENOFIBRATE 160 MG TABLET PO SCH (09:48)
[2021-11-12] MEDS: SERTRALINE 50 MG TABLET PO SCH (09:48)
[2021-11-12] MEDS: GABAPENTIN 300 MG CAPSULE PO SCH ×2 (09:48→21:32)
[2021-11-12] MEDS: AZITHROMYCIN INJ 500 MG in SODIUM CHLORIDE 0.9% 250 ML IV SCH (09:48)
[2021-11-12] MEDS: ASCORBIC ACID 500 MG TABLET PO SCH (09:48)
[2021-11-12] MEDS: ISOSORBIDE MONONITRATE 30 MG TABLET PO SCH (09:48)
[2021-11-12] MEDS: TOPIRAMATE 25 MG TABLET PO SCH ×2 (10:03→21:31)
[2021-11-12] MEDS: INSULIN REGULAR 100 UNIT/ML SUBCUT SCH ×4 (10:04→21:32)
[2021-11-12] MEDS: APIXABAN 5 MG TABLET PO SCH ×2 (10:04→21:32)
[2021-11-12] MEDS: FUROSEMIDE 40 MG/4 ML VIAL IV SCH (11:37)
[2021-11-12] MEDS ORDERED: SODIUM CHLORIDE 0.9% 250 ML IV ONE (16:39)
[2021-11-12] MEDS: cefTRIAXone 1,000 MG in SODIUM CHLORIDE 0.9% 100 ML IV SCH (18:02)
[2021-11-12] MEDS ORDERED: INSULIN GLARGINE 100 UNIT/ML SUBCUT SCH (21:00)
[2021-11-12] MEDS: ROSUVASTATIN 20 MG TABLET PO SCH (21:31)
[2021-11-13] MEDS: ALBUTEROL 2.5 MG/3 ML NEB RESP TX SCH ×4 (00:15→19:40)
[2021-11-13 04:50] LABS: Basophils % 0.4 % (0.0-0.8); Eosinophils # 0.2 10*3/uL (0.0-0.87); Eosinophils % 2.6 % (0.00-10.9); Hematocrit 38.2 VOL% (35.7-47.0); Hemoglobin 12.6 GM/DL (12.0-16.0); Immature Granulocytes % 0.3 %; Immature Granulocytes Absolute 0.03 #; Lymphocytes # 3.3 10*3/uL (1.4-4.0); Lymphocytes % 35.5 % (21.3-54.2); Mean Corpuscular Volume 91.4 FL (87-102); Mean Platelet Volume 10.8 FL (9.6-12.0); Monocytes % 6.2 % (1.7-12.7); Platelet Count 204 T/CUMM (130-400); Red Blood Count 4.18 MC/CUMM (3.8-5.5); Red Cell Distribution Width 12.5 % (9.3-17.3); White Blood Count 9.2 T/CUMM (4-12)
[2021-11-13 05:15] LABS: Osmolality,Calculated 281.8 MOS/KG (273-304); Potassium 3.5 MMOL/L (3.5-5.1)
[2021-11-13] MEDS: INSULIN REGULAR 100 UNIT/ML SUBCUT SCH ×4 (09:51→21:50)
[2021-11-13] MEDS: ASCORBIC ACID 500 MG TABLET PO SCH (09:52)
[2021-11-13] MEDS: TOPIRAMATE 25 MG TABLET PO SCH ×2 (09:52→21:49)
[2021-11-13] MEDS: AZITHROMYCIN INJ 500 MG in SODIUM CHLORIDE 0.9% 250 ML IV SCH (09:52)
[2021-11-13] MEDS: SERTRALINE 50 MG TABLET PO SCH (09:52)
[2021-11-13] MEDS: CLOPIDOGREL 75 MG TABLET PO SCH (09:52)
[2021-11-13] MEDS: PANTOPRAZOLE 40 MG TABLET PO SCH (09:52)
[2021-11-13] MEDS: FENOFIBRATE 160 MG TABLET PO SCH (09:52)
[2021-11-13] MEDS: GABAPENTIN 300 MG CAPSULE PO SCH ×2 (09:52→21:50)
[2021-11-13] MEDS: APIXABAN 5 MG TABLET PO SCH ×2 (11:11→21:49)
[2021-11-13] MEDS: cefTRIAXone 1,000 MG in SODIUM CHLORIDE 0.9% 100 ML IV SCH (18:16)
[2021-11-13] MEDS: ROSUVASTATIN 20 MG TABLET PO SCH (21:49)
[2021-11-13] MEDS: INSULIN GLARGINE 100 UNIT/ML SUBCUT SCH (21:51)
[2021-11-14] MEDS: ALBUTEROL 2.5 MG/3 ML NEB RESP TX SCH ×4 (01:11→19:48)
[2021-11-14 08:46] LABS: Calcium 9.2 MG/DL (8.5-10.1); Osmolality,Calculated 285.8 MOS/KG (273-304); Potassium 4.2 MMOL/L (3.5-5.1)
[2021-11-14] MEDS: INSULIN REGULAR 100 UNIT/ML SUBCUT SCH ×4 (09:59→23:23)
[2021-11-14] MEDS: PANTOPRAZOLE 40 MG TABLET PO SCH (09:59)
[2021-11-14] MEDS: CLOPIDOGREL 75 MG TABLET PO SCH (10:00)
[2021-11-14] MEDS: TOPIRAMATE 25 MG TABLET PO SCH ×2 (10:00→22:45)
[2021-11-14] MEDS: GABAPENTIN 300 MG CAPSULE PO SCH ×2 (10:00→22:42)
[2021-11-14] MEDS: SERTRALINE 50 MG TABLET PO SCH (10:00)
[2021-11-14] MEDS: APIXABAN 5 MG TABLET PO SCH ×2 (10:00→22:42)
[2021-11-14] MEDS: FENOFIBRATE 160 MG TABLET PO SCH (10:00)
[2021-11-14] MEDS: ASCORBIC ACID 500 MG TABLET PO SCH (10:00)
[2021-11-14] MEDS: cefTRIAXone 1,000 MG in SODIUM CHLORIDE 0.9% 100 ML IV SCH (18:40)
[2021-11-14] MEDS: ROSUVASTATIN 20 MG TABLET PO SCH (22:42)
[2021-11-14] MEDS: INSULIN GLARGINE 100 UNIT/ML SUBCUT SCH (23:23)
[2021-11-15] MEDS: ALBUTEROL 2.5 MG/3 ML NEB RESP TX SCH ×4 (00:34→19:05)
[2021-11-15 05:35] LABS: Calcium 9.2 MG/DL (8.5-10.1); Potassium 3.8 MMOL/L (3.5-5.1)
[2021-11-15] MEDS: INSULIN REGULAR 100 UNIT/ML SUBCUT SCH ×4 (09:02→20:58)
[2021-11-15] MEDS: GABAPENTIN 300 MG CAPSULE PO SCH ×2 (09:04→20:57)
[2021-11-15] MEDS: ASCORBIC ACID 500 MG TABLET PO SCH (09:04)
[2021-11-15] MEDS: FENOFIBRATE 160 MG TABLET PO SCH (09:04)
[2021-11-15] MEDS: APIXABAN 5 MG TABLET PO SCH ×2 (09:04→20:57)
[2021-11-15] MEDS: CLOPIDOGREL 75 MG TABLET PO SCH (09:04)
[2021-11-15] MEDS: PANTOPRAZOLE 40 MG TABLET PO SCH (09:04)
[2021-11-15] MEDS: SERTRALINE 50 MG TABLET PO SCH (09:04)
[2021-11-15] MEDS: TOPIRAMATE 25 MG TABLET PO SCH ×2 (09:04→20:57)
[2021-11-15] MEDS: ROSUVASTATIN 20 MG TABLET PO SCH (20:57)
[2021-11-15] MEDS: CEFDINIR 300 MG CAPSULE PO SCH (20:57)
[2021-11-15] MEDS: INSULIN GLARGINE 100 UNIT/ML SUBCUT SCH (20:58)
[2021-11-16] MEDS: ALBUTEROL 2.5 MG/3 ML NEB RESP TX SCH ×3 (00:45→13:05)
[2021-11-16] MEDS: INSULIN REGULAR 100 UNIT/ML SUBCUT SCH ×2 (08:44→13:43)
[2021-11-16] MEDS: PANTOPRAZOLE 40 MG TABLET PO SCH (09:27)
[2021-11-16] MEDS: SERTRALINE 50 MG TABLET PO SCH (09:28)
[2021-11-16] MEDS: GABAPENTIN 300 MG CAPSULE PO SCH (09:28)
[2021-11-16] MEDS: APIXABAN 5 MG TABLET PO SCH (09:28)
[2021-11-16] MEDS: ASCORBIC ACID 500 MG TABLET PO SCH (09:28)
[2021-11-16] MEDS: TOPIRAMATE 25 MG TABLET PO SCH (09:28)
[2021-11-16] MEDS: FENOFIBRATE 160 MG TABLET PO SCH (09:28)
[2021-11-16] MEDS: CLOPIDOGREL 75 MG TABLET PO SCH (09:28)
[2021-11-16] MEDS: CEFDINIR 300 MG CAPSULE PO SCH (09:28)
[2021-11-16 12:13] VITALS: BP 113/69
== END 2021-11-16 15:11 | disposition swing bed (61) | DRG 871 ==
LOC: EDBD → EDUNIT# → N.ED 14:28 → N.EDINP 20:11 → SUATTDRO 20:11 → N.TELES 11-10 13:25
PROVIDERS: ADMIT Internal Medicine; ATTEND Internal Medicine
PROC: CLCCHCL (ICD-10-PCS; 2021-11-10 13:45)

== ENCOUNTER 2021-11-21 23:28 | Inpatient (IN) ==
[2021-11-22 01:16] LABS: Basophils # 0.1 10*3/uL (0.0-0.2); Basophils % 0.4 % (0.0-0.8); Eosinophils # 0.1 10*3/uL (0.0-0.87); Eosinophils % 1.1 % (0.00-10.9); Hematocrit 45.9 VOL% (35.7-47.0); Immature Granulocytes % 0.4 %; Immature Granulocytes Absolute 0.05 #; Lymphocytes # 2.2 10*3/uL (1.4-4.0); Lymphocytes % 19.2 % (21.3-54.2); Mean Corpuscular HGB Conc 32.7 GM/DL (32-36); Mean Corpuscular Volume 90.5 FL (87-102); Monocytes % 6.6 % (1.7-12.7); Neutrophils % 72.3 % (38.7-73.9); Platelet Count 283 T/CUMM (130-400); Red Blood Count 5.07 MC/CUMM (3.8-5.5); Red Cell Distribution Width 12.3 % (9.3-17.3); White Blood Count 11.4 T/CUMM (4-12)
[2021-11-22] MEDS ORDERED: FUROSEMIDE 40 MG/4 ML VIAL IV STA (01:30)
[2021-11-22] MEDS ORDERED: PIPERACILLIN/TAZOBACTAM 3,375 MG in SODIUM CHLORIDE 0.9% 100 ML IV STA ×2 (01:30→01:59)
[2021-11-22 01:47] LABS: Albumin 3.4 G/DL (3.4-5.0); Bilirubin,Total 0.4 MG/DL (0.20-1.00); Calcium 9.2 MG/DL (8.5-10.1); Osmolality,Calculated 280.1 MOS/KG (273-304); Potassium 4.3 MMOL/L (3.5-5.1); Total Protein 7.9 G/DL (6.4-8.2)
[2021-11-22] MEDS ORDERED: MAGNESIUM SULF RIDER 4 GM/100 ML PREMIX IV PRN (02:13)
[2021-11-22] MEDS ORDERED: ONDANSETRON 4 MG/2 ML VIAL IV PRN (02:13)
[2021-11-22] MEDS ORDERED: MAGNESIUM SULF RIDER 2 GM/50 ML PREMIX IV PRN (02:13)
[2021-11-22] MEDS ORDERED: MONTELUKAST 10 MG TABLET PO PRN (02:23)
[2021-11-22] MEDS ORDERED: OLANZapine 10 MG VIAL IM PRN (04:00)
[2021-11-22] MEDS: ALBUTEROL/IPRATROPIUM 3 ML NEB RESP TX SCH ×3 (07:20→18:08)
[2021-11-22] MEDS: INSULIN REGULAR 100 UNIT/ML SUBCUT SCH ×4 (07:52→20:53)
[2021-11-22] MEDS ORDERED: FUROSEMIDE 40 MG/4 ML VIAL IV SCH (08:00)
[2021-11-22 08:42] LABS: Albumin 3.1 G/DL (3.4-5.0); Bilirubin,Total 0.4 MG/DL (0.20-1.00); Calcium 9.1 MG/DL (8.5-10.1); Osmolality,Calculated 283.1 MOS/KG (273-304); Potassium 4.8 MMOL/L (3.5-5.1); Total Protein 7.3 G/DL (6.4-8.2)
[2021-11-22] MEDS ORDERED: GABAPENTIN 300 MG CAPSULE PO SCH (09:00)
[2021-11-22] MEDS ORDERED: SERTRALINE 50 MG TABLET PO SCH (09:00)
[2021-11-22] MEDS ORDERED: PANTOPRAZOLE 40 MG TABLET PO SCH (09:00)
[2021-11-22] MEDS ORDERED: TOPIRAMATE 100 MG TABLET PO SCH (09:00)
[2021-11-22] MEDS: KETOCONAZOLE 2% SHAMPOO 120 ML BOTTLE TOP SCH (10:10)
[2021-11-22] MEDS: APIXABAN 5 MG TABLET PO SCH ×2 (10:10→20:53)
[2021-11-22] MEDS: CLOPIDOGREL 75 MG TABLET PO SCH (10:10)
[2021-11-22] MEDS: KETOCONAZOLE 2% CREAM 30 GM TUBE TOP SCH ×2 (10:10→20:50)
[2021-11-22] MEDS: PANTOPRAZOLE 40 MG TABLET PO SCH ×2 (10:11→20:53)
[2021-11-22] MEDS: FENOFIBRATE 160 MG TABLET PO SCH (10:11)
[2021-11-22] MEDS: ASCORBIC ACID 500 MG TABLET PO SCH (10:11)
[2021-11-22] MEDS: PIPERACILLIN/TAZOBACTAM 3,375 MG in SODIUM CHLORIDE 0.9% 100 ML IV SCH ×2 (10:12→18:05)
[2021-11-22] MEDS: CETIRIZINE 10 MG TABLET PO SCH (10:12)
[2021-11-22] MEDS ORDERED: SODIUM CHLORIDE 0.9% 500 ML IV STA (12:38)
[2021-11-22 13:08] LABS: Arterial Bicarbonate iSTAT 24.4 MMOL/L (20-26); Arterial pH iSTAT 7.361 (7.35-7.45)
[2021-11-22] MEDS ORDERED: INFLUENZA VIRUS VACCINE 0.5 ML SYRINGE IM ONE (14:32)
[2021-11-22] MEDS: VANCOMYCIN INJ 1,000 MG in SODIUM CHLORIDE 0.9% 250 ML IV SCH (15:19)
[2021-11-22] MEDS ORDERED: ROSUVASTATIN 20 MG TABLET PO SCH (21:00)
[2021-11-23] MEDS: ALBUTEROL/IPRATROPIUM 3 ML NEB RESP TX SCH ×4 (00:13→19:27)
[2021-11-23] MEDS: PIPERACILLIN/TAZOBACTAM 3,375 MG in SODIUM CHLORIDE 0.9% 100 ML IV SCH ×3 (02:20→18:12)
[2021-11-23 03:53] LABS: Alanine Aminotransferase 33 U/L (13-56); Albumin 2.7 G/DL (3.4-5.0); Alkaline Phosphatase 66 U/L (45-117); Aspartate Amino Transferase 18 U/L (0-37); Bilirubin,Total < 0.39 MG/DL (0.20-1.00); Blood Urea Nitrogen 23 MG/DL (7-18); Calcium 8.6 MG/DL (8.5-10.1); Carbon Dioxide 25 MMOL/L (21-32); Estimated Glom Filtration Rate 46 ML/MIN; Glucose 230 MG/DL (74-106); Osmolality,Calculated 291.3 MOS/KG (273-304); Potassium 3.5 MMOL/L (3.5-5.1); Sodium 141 MMOL/L (136-145)
[2021-11-23] MEDS: INSULIN REGULAR 100 UNIT/ML SUBCUT SCH ×4 (08:29→21:28)
[2021-11-23] MEDS: CLOPIDOGREL 75 MG TABLET PO SCH (08:30)
[2021-11-23] MEDS: CETIRIZINE 10 MG TABLET PO SCH (08:30)
[2021-11-23] MEDS: APIXABAN 5 MG TABLET PO SCH ×2 (08:30→21:29)
[2021-11-23] MEDS: FENOFIBRATE 160 MG TABLET PO SCH (08:30)
[2021-11-23] MEDS: LEVOTHYROXINE 50 MCG TABLET PO SCH (08:30)
[2021-11-23] MEDS: PANTOPRAZOLE 40 MG TABLET PO SCH ×2 (08:30→21:29)
[2021-11-23] MEDS: BUDESONIDE/FORMOTEROL 160-4.5 INHALER 6 GM INH SCH (08:30)
[2021-11-23] MEDS: ATORVASTATIN 80 MG TABLET PO SCH (08:30)
[2021-11-23] MEDS: KETOCONAZOLE 2% CREAM 30 GM TUBE TOP SCH ×2 (08:32→21:30)
[2021-11-23] MEDS: ASCORBIC ACID 500 MG TABLET PO SCH (10:07)
[2021-11-23] MEDS: VANCOMYCIN INJ 1,000 MG in SODIUM CHLORIDE 0.9% 250 ML IV SCH (15:48)
[2021-11-23] MEDS ORDERED: INSULIN GLARGINE 100 UNIT/ML SUBCUT SCH (21:00)
[2021-11-23] MEDS ORDERED: FUROSEMIDE 40 MG/4 ML VIAL ONE (22:33)
[2021-11-23] MEDS ORDERED: FUROSEMIDE 40 MG/4 ML VIAL IV ONE (22:35)
[2021-11-23] MEDS ORDERED: MORPHINE 4 MG/1 ML VIAL ONE (22:55)
[2021-11-23 23:28] LABS: Calcium 9.1 MG/DL (8.5-10.1); Osmolality,Calculated 291.5 MOS/KG (273-304); Potassium 4.1 MMOL/L (3.5-5.1)
[2021-11-23] MEDS ORDERED: MORPHINE 4 MG/1 ML VIAL IV ONE (23:30)
[2021-11-23 23:39] LABS: ABG Base Excess -5.1 MMOL/L (-2.5-2.5); ABG HCO3 20.2 MMOL/L (20-26); ABG Oxygen Saturation 94.3 % (95-100); ABG PCO2 46.3 MM HG (35-48); ABG PH 7.284 (7.35-7.45); ABG PO2 84.7 MM HG (80-95); ABG TCO2 18.9 MMOL/L (23-27)
[2021-11-24] MEDS: ALBUTEROL/IPRATROPIUM 3 ML NEB RESP TX SCH ×4 (00:31→19:50)
[2021-11-24] MEDS ORDERED: INSULIN GLARGINE 100 UNIT/ML SUBCUT ONE ×2 (01:11→16:23)
[2021-11-24] MEDS: methylPREDNISolone SOD SUC 40 MG/1 ML VIAL IV SCH ×4 (02:17→20:20)
[2021-11-24] MEDS: PIPERACILLIN/TAZOBACTAM 3,375 MG in SODIUM CHLORIDE 0.9% 100 ML IV SCH ×2 (02:18→09:17)
[2021-11-24 05:26] LABS: Basophils # 0.1 10*3/uL (0.0-0.2); Basophils % 0.4 % (0.0-0.8); Eosinophils % 0.2 % (0.00-10.9); Hematocrit 45.2 VOL% (35.7-47.0); Hemoglobin 14.8 GM/DL (12.0-16.0); Immature Granulocytes % 0.7 %; Immature Granulocytes Absolute 0.11 #; Lymphocytes # 1.2 10*3/uL (1.4-4.0); Lymphocytes % 7.1 % (21.3-54.2); Mean Corpuscular HGB Conc 32.7 GM/DL (32-36); Mean Corpuscular Volume 90.2 FL (87-102); Mean Platelet Volume 9.8 FL (9.6-12.0); Monocytes % 5.5 % (1.7-12.7); Neutrophils % 86.1 % (38.7-73.9); Platelet Count 278 T/CUMM (130-400); Red Blood Count 5.01 MC/CUMM (3.8-5.5); Red Cell Distribution Width 12.3 % (9.3-17.3); White Blood Count 16.7 T/CUMM (4-12)
[2021-11-24 05:58] LABS: Albumin 3.3 G/DL (3.4-5.0); Bilirubin,Total 0.4 MG/DL (0.20-1.00); Calcium 8.5 MG/DL (8.5-10.1); Osmolality,Calculated 291.7 MOS/KG (273-304); Potassium 4.2 MMOL/L (3.5-5.1); Total Protein 7.8 G/DL (6.4-8.2)
[2021-11-24] MEDS: INSULIN REGULAR 100 UNIT/ML SUBCUT SCH ×6 (09:15→23:55)
[2021-11-24] MEDS: APIXABAN 5 MG TABLET PO SCH ×2 (09:16→20:10)
[2021-11-24] MEDS: FUROSEMIDE 40 MG/4 ML VIAL IV SCH ×2 (09:16→17:39)
[2021-11-24] MEDS: CLOPIDOGREL 75 MG TABLET PO SCH (09:17)
[2021-11-24] MEDS: KETOCONAZOLE 2% CREAM 30 GM TUBE TOP SCH ×2 (09:17→20:10)
[2021-11-24] MEDS: ATORVASTATIN 80 MG TABLET PO SCH (09:17)
[2021-11-24] MEDS: LEVOTHYROXINE 50 MCG TABLET PO SCH (09:17)
[2021-11-24] MEDS: FENOFIBRATE 160 MG TABLET PO SCH (09:17)
[2021-11-24] MEDS: PANTOPRAZOLE 40 MG TABLET PO SCH ×2 (09:17→20:10)
[2021-11-24] MEDS: BUDESONIDE/FORMOTEROL 160-4.5 INHALER 6 GM INH SCH (09:17)
[2021-11-24] MEDS: CETIRIZINE 10 MG TABLET PO SCH (09:17)
[2021-11-24] MEDS: ASCORBIC ACID 500 MG TABLET PO SCH (09:17)
[2021-11-24] MEDS: hydrALAZINE 20 MG/1 ML VIAL IV PRN ×2 (10:08→21:55)
[2021-11-24] MEDS ORDERED: METOPROLOL TARTRATE 5 MG/5 ML VIAL IV ONE (11:03)
[2021-11-24] MEDS: SPIRONOLACTONE 25 MG TABLET PO SCH (11:16)
[2021-11-24] MEDS ORDERED: MORPHINE 4 MG/1 ML VIAL IV ONE (20:35)
[2021-11-24] MEDS ORDERED: INSULIN GLARGINE 100 UNIT/ML SUBCUT SCH (21:00)
[2021-11-24 21:37] LABS: Bacteria,Urine Occasional /HPF (Few); Mucus,Urine Occasional /LPF (Occasional); RBC,Urine 2 /HPF (0-4)
[2021-11-24 21:40] LABS: Bilirubin,Urine Negative (Negative); Glucose,Urine (UA) >=1000 mg/dL (Negative); Ketones,Urine Negative (Negative); Nitrite,Urine Negative (Negative); Protein,Urine Negative (Negative); Urine Appearance Clear (Clear); Urine Color Yellow (Yellow); Urine Specific Gravity 1.015 (1.001-1.035); Urine pH 5.5 (4.5-8.0)
[2021-11-24 21:41] LABS: Blood, Urine Trace mg/dL (Negative); Urine Urobilinogen 0.2 eU/dL (<2.0)
[2021-11-25] MEDS: INSULIN REGULAR 100 UNIT/ML SUBCUT SCH ×5 (02:10→21:04)
[2021-11-25] MEDS: ALBUTEROL/IPRATROPIUM 3 ML NEB RESP TX SCH ×4 (03:45→19:30)
[2021-11-25 06:13] LABS: Basophils % 0.2 % (0.0-0.8); Hematocrit 41.9 VOL% (35.7-47.0); Hemoglobin 14.3 GM/DL (12.0-16.0); Immature Granulocytes % 0.4 %; Immature Granulocytes Absolute 0.05 #; Lymphocytes # 1.3 10*3/uL (1.4-4.0); Mean Corpuscular HGB Conc 34.1 GM/DL (32-36); Mean Corpuscular Volume 86.7 FL (87-102); Monocytes % 6.9 % (1.7-12.7); Neutrophils % 82.5 % (38.7-73.9); Platelet Count 302 T/CUMM (130-400); Red Blood Count 4.83 MC/CUMM (3.8-5.5); Red Cell Distribution Width 12.3 % (9.3-17.3); White Blood Count 12.7 T/CUMM (4-12)
[2021-11-25 06:22] LABS: Calcium 9.8 MG/DL (8.5-10.1); Potassium 3.2 MMOL/L (3.5-5.1)
[2021-11-25 06:27] LABS: Albumin 2.1 G/DL (3.4-5.0); Bilirubin,Total 0.8 MG/DL (0.20-1.00); Calcium 7.8 MG/DL (8.5-10.1); Osmolality,Calculated 287.3 MOS/KG (273-304); Potassium 4.1 MMOL/L (3.5-5.1); Total Protein 6.8 G/DL (6.4-8.2)
[2021-11-25] MEDS: ATORVASTATIN 80 MG TABLET PO SCH (09:42)
[2021-11-25] MEDS: APIXABAN 5 MG TABLET PO SCH ×2 (09:42→21:02)
[2021-11-25] MEDS: SPIRONOLACTONE 25 MG TABLET PO SCH (09:42)
[2021-11-25] MEDS: PANTOPRAZOLE 40 MG TABLET PO SCH ×2 (09:43→21:02)
[2021-11-25] MEDS: ASCORBIC ACID 500 MG TABLET PO SCH (09:43)
[2021-11-25] MEDS: FENOFIBRATE 160 MG TABLET PO SCH (09:43)
[2021-11-25] MEDS: LEVOTHYROXINE 50 MCG TABLET PO SCH (09:43)
[2021-11-25] MEDS: CLOPIDOGREL 75 MG TABLET PO SCH (09:43)
[2021-11-25] MEDS: methylPREDNISolone SOD SUC 40 MG/1 ML VIAL IV SCH ×2 (09:43→21:00)
[2021-11-25] MEDS: KETOCONAZOLE 2% CREAM 30 GM TUBE TOP SCH ×2 (09:44→22:21)
[2021-11-25] MEDS: BUDESONIDE/FORMOTEROL 160-4.5 INHALER 6 GM INH SCH (09:44)
[2021-11-25] MEDS: CETIRIZINE 10 MG TABLET PO SCH (09:44)
[2021-11-25] MEDS: FUROSEMIDE 40 MG/4 ML VIAL IV SCH ×2 (09:45)
[2021-11-25] MEDS: hydrALAZINE 10 MG TABLET PO SCH ×2 (09:57→21:02)
[2021-11-25] MEDS: POTASSIUM CHLORIDE 20 MEQ TABLET PO SCH (09:57)
[2021-11-25] MEDS: KETOCONAZOLE 2% SHAMPOO 120 ML BOTTLE TOP SCH (09:58)
[2021-11-25] MEDS: carvediloL 3.125 MG TABLET PO SCH ×2 (13:39→21:02)
[2021-11-25] MEDS: INSULIN GLARGINE 100 UNIT/ML SUBCUT SCH (21:33)
[2021-11-26] MEDS: ALBUTEROL/IPRATROPIUM 3 ML NEB RESP TX SCH ×4 (00:30→19:15)
[2021-11-26] MEDS: INSULIN REGULAR 100 UNIT/ML SUBCUT SCH ×5 (00:51→23:58)
[2021-11-26 05:56] LABS: Basophils % 0.2 % (0.0-0.8); Hematocrit 41.1 VOL% (35.7-47.0); Hemoglobin 13.6 GM/DL (12.0-16.0); Immature Granulocytes % 0.5 %; Immature Granulocytes Absolute 0.06 #; Lymphocytes # 1.7 10*3/uL (1.4-4.0); Lymphocytes % 13.2 % (21.3-54.2); Mean Corpuscular HGB Conc 33.1 GM/DL (32-36); Mean Corpuscular Volume 87.6 FL (87-102); Mean Platelet Volume 9.8 FL (9.6-12.0); Monocytes % 5.9 % (1.7-12.7); Neutrophils % 80.2 % (38.7-73.9); Platelet Count 285 T/CUMM (130-400); Red Blood Count 4.69 MC/CUMM (3.8-5.5); Red Cell Distribution Width 12.4 % (9.3-17.3); White Blood Count 12.8 T/CUMM (4-12)
[2021-11-26 06:15] LABS: Calcium 9.6 MG/DL (8.5-10.1); Osmolality,Calculated 288.4 MOS/KG (273-304)
[2021-11-26] MEDS: FENOFIBRATE 160 MG TABLET PO SCH (08:38)
[2021-11-26] MEDS: POTASSIUM CHLORIDE 20 MEQ TABLET PO SCH (08:39)
[2021-11-26] MEDS: PANTOPRAZOLE 40 MG TABLET PO SCH ×2 (08:39→21:12)
[2021-11-26] MEDS: CLOPIDOGREL 75 MG TABLET PO SCH (08:39)
[2021-11-26] MEDS: ATORVASTATIN 80 MG TABLET PO SCH (08:39)
[2021-11-26] MEDS: ASCORBIC ACID 500 MG TABLET PO SCH (08:40)
[2021-11-26] MEDS: SPIRONOLACTONE 25 MG TABLET PO SCH (08:40)
[2021-11-26] MEDS: LEVOTHYROXINE 50 MCG TABLET PO SCH (08:40)
[2021-11-26] MEDS: carvediloL 3.125 MG TABLET PO SCH ×2 (08:40→21:12)
[2021-11-26] MEDS: CETIRIZINE 10 MG TABLET PO SCH (08:40)
[2021-11-26] MEDS: methylPREDNISolone SOD SUC 40 MG/1 ML VIAL IV SCH ×2 (08:40→21:13)
[2021-11-26] MEDS: APIXABAN 5 MG TABLET PO SCH ×2 (08:40→21:12)
[2021-11-26] MEDS: hydrALAZINE 10 MG TABLET PO SCH ×3 (08:40→21:21)
[2021-11-26] MEDS: FUROSEMIDE 40 MG/4 ML VIAL IV SCH (08:41)
[2021-11-26] MEDS: KETOCONAZOLE 2% CREAM 30 GM TUBE TOP SCH ×2 (08:41→21:21)
[2021-11-26] MEDS: BUDESONIDE/FORMOTEROL 160-4.5 INHALER 6 GM INH SCH (11:20)
[2021-11-26] MEDS: INSULIN LISPRO 100 UNIT/ML SUBCUT SCH ×3 (13:52→21:15)
[2021-11-26] MEDS: INSULIN GLARGINE 100 UNIT/ML SUBCUT SCH (21:15)
[2021-11-26] MEDS: DONEPEZIL 5 MG TABLET PO SCH (21:20)
[2021-11-27] MEDS: ALBUTEROL/IPRATROPIUM 3 ML NEB RESP TX SCH ×4 (01:10→18:58)
[2021-11-27 05:58] LABS: Basophils % 0.2 % (0.0-0.8); Hematocrit 40.7 VOL% (35.7-47.0); Hemoglobin 13.3 GM/DL (12.0-16.0); Immature Granulocytes % 0.4 %; Immature Granulocytes Absolute 0.05 #; Lymphocytes # 1.6 10*3/uL (1.4-4.0); Lymphocytes % 14.4 % (21.3-54.2); Mean Corpuscular HGB Conc 32.7 GM/DL (32-36); Mean Corpuscular Volume 88.9 FL (87-102); Mean Platelet Volume 10.1 FL (9.6-12.0); Monocytes % 6.1 % (1.7-12.7); Neutrophils % 78.9 % (38.7-73.9); Platelet Count 275 T/CUMM (130-400); Red Blood Count 4.58 MC/CUMM (3.8-5.5); Red Cell Distribution Width 12.3 % (9.3-17.3); White Blood Count 11.2 T/CUMM (4-12)
[2021-11-27 06:12] LABS: Osmolality,Calculated 289.5 MOS/KG (273-304); Potassium 4.3 MMOL/L (3.5-5.1)
[2021-11-27] MEDS: INSULIN REGULAR 100 UNIT/ML SUBCUT SCH ×3 (06:52→17:47)
[2021-11-27] MEDS: FUROSEMIDE 40 MG/4 ML VIAL IV SCH (09:17)
[2021-11-27] MEDS: INSULIN LISPRO 100 UNIT/ML SUBCUT SCH ×4 (09:17→22:12)
[2021-11-27] MEDS: BUDESONIDE/FORMOTEROL 160-4.5 INHALER 6 GM INH SCH (09:18)
[2021-11-27] MEDS: ATORVASTATIN 80 MG TABLET PO SCH (09:19)
[2021-11-27] MEDS: CLOPIDOGREL 75 MG TABLET PO SCH (09:20)
[2021-11-27] MEDS: SPIRONOLACTONE 25 MG TABLET PO SCH (09:20)
[2021-11-27] MEDS: hydrALAZINE 10 MG TABLET PO SCH ×3 (09:20→22:11)
[2021-11-27] MEDS: APIXABAN 5 MG TABLET PO SCH ×2 (09:20→22:11)
[2021-11-27] MEDS: PANTOPRAZOLE 40 MG TABLET PO SCH ×2 (09:20→22:12)
[2021-11-27] MEDS: POTASSIUM CHLORIDE 20 MEQ TABLET PO SCH (09:20)
[2021-11-27] MEDS: CETIRIZINE 10 MG TABLET PO SCH (09:20)
[2021-11-27] MEDS: carvediloL 3.125 MG TABLET PO SCH ×2 (09:20→22:11)
[2021-11-27] MEDS: LEVOTHYROXINE 50 MCG TABLET PO SCH (09:20)
[2021-11-27] MEDS: KETOCONAZOLE 2% CREAM 30 GM TUBE TOP SCH ×2 (09:21→22:12)
[2021-11-27] MEDS: FENOFIBRATE 160 MG TABLET PO SCH (09:29)
[2021-11-27] MEDS: ASCORBIC ACID 500 MG TABLET PO SCH ×2 (10:42→10:48)
[2021-11-27] MEDS: INSULIN GLARGINE 100 UNIT/ML SUBCUT SCH ×2 (10:48→22:12)
[2021-11-27] MEDS: DONEPEZIL 5 MG TABLET PO SCH (22:11)
[2021-11-28] MEDS: ALBUTEROL/IPRATROPIUM 3 ML NEB RESP TX SCH ×4 (00:19→19:48)
[2021-11-28] MEDS: INSULIN REGULAR 100 UNIT/ML SUBCUT SCH ×4 (00:44→18:37)
[2021-11-28 06:00] LABS: Calcium 9.4 MG/DL (8.5-10.1); Osmolality,Calculated 287.2 MOS/KG (273-304)
[2021-11-28 06:22] LABS: Basophils # 0.1 10*3/uL (0.0-0.2); Basophils % 0.6 % (0.0-0.8); Eosinophils # 0.2 10*3/uL (0.0-0.87); Eosinophils % 1.1 % (0.00-10.9); Hematocrit 47.6 VOL% (35.7-47.0); Immature Granulocytes % 0.4 %; Immature Granulocytes Absolute 0.05 #; Lymphocytes # 5.1 10*3/uL (1.4-4.0); Lymphocytes % 38.2 % (21.3-54.2); Mean Corpuscular HGB Conc 33.6 GM/DL (32-36); Mean Corpuscular Volume 86.9 FL (87-102); Mean Platelet Volume 10.7 FL (9.6-12.0); Monocytes % 7.9 % (1.7-12.7); Neutrophils % 51.8 % (38.7-73.9); Platelet Count 205 T/CUMM (130-400); Red Blood Count 5.48 MC/CUMM (3.8-5.5); Red Cell Distribution Width 12.3 % (9.3-17.3); White Blood Count 13.4 T/CUMM (4-12)
[2021-11-28] MEDS: INSULIN GLARGINE 100 UNIT/ML SUBCUT SCH ×2 (08:01→22:40)
[2021-11-28] MEDS: INSULIN LISPRO 100 UNIT/ML SUBCUT SCH ×4 (08:01→22:39)
[2021-11-28] MEDS: BUDESONIDE/FORMOTEROL 160-4.5 INHALER 6 GM INH SCH (08:01)
[2021-11-28] MEDS: KETOCONAZOLE 2% SHAMPOO 120 ML BOTTLE TOP SCH (08:08)
[2021-11-28] MEDS: CLOPIDOGREL 75 MG TABLET PO SCH (08:09)
[2021-11-28] MEDS: PANTOPRAZOLE 40 MG TABLET PO SCH ×2 (08:09→22:40)
[2021-11-28] MEDS: CETIRIZINE 10 MG TABLET PO SCH (08:09)
[2021-11-28] MEDS: SPIRONOLACTONE 25 MG TABLET PO SCH (08:09)
[2021-11-28] MEDS: carvediloL 3.125 MG TABLET PO SCH ×2 (08:09→22:39)
[2021-11-28] MEDS: ASCORBIC ACID 500 MG TABLET PO SCH (08:09)
[2021-11-28] MEDS: POTASSIUM CHLORIDE 20 MEQ TABLET PO SCH (08:09)
[2021-11-28] MEDS: hydrALAZINE 10 MG TABLET PO SCH ×3 (08:10→22:39)
[2021-11-28] MEDS: LEVOTHYROXINE 50 MCG TABLET PO SCH (08:10)
[2021-11-28] MEDS: ATORVASTATIN 80 MG TABLET PO SCH (08:10)
[2021-11-28] MEDS: FENOFIBRATE 160 MG TABLET PO SCH (08:10)
[2021-11-28] MEDS: APIXABAN 5 MG TABLET PO SCH ×2 (08:10→22:39)
[2021-11-28] MEDS: KETOCONAZOLE 2% CREAM 30 GM TUBE TOP SCH ×2 (08:11→22:40)
[2021-11-28] MEDS: DONEPEZIL 5 MG TABLET PO SCH (22:39)
[2021-11-29] MEDS: ALBUTEROL/IPRATROPIUM 3 ML NEB RESP TX SCH ×4 (00:31→19:55)
[2021-11-29] MEDS: INSULIN REGULAR 100 UNIT/ML SUBCUT SCH ×4 (00:59→20:12)
[2021-11-29 06:17] LABS: Basophils % 0.2 % (0.0-0.8); Eosinophils # 0.3 10*3/uL (0.0-0.87); Eosinophils % 2.4 % (0.00-10.9); Hematocrit 43.8 VOL% (35.7-47.0); Hemoglobin 14.1 GM/DL (12.0-16.0); Immature Granulocytes % 0.4 %; Immature Granulocytes Absolute 0.05 #; Lymphocytes # 5.7 10*3/uL (1.4-4.0); Lymphocytes % 41.7 % (21.3-54.2); Mean Corpuscular HGB Conc 32.2 GM/DL (32-36); Mean Corpuscular Volume 91.8 FL (87-102); Mean Platelet Volume 10.6 FL (9.6-12.0); Monocytes % 6.6 % (1.7-12.7); Neutrophils % 48.7 % (38.7-73.9); Platelet Count 264 T/CUMM (130-400); Red Blood Count 4.77 MC/CUMM (3.8-5.5); Red Cell Distribution Width 12.4 % (9.3-17.3); White Blood Count 13.7 T/CUMM (4-12)
[2021-11-29 06:35] LABS: Calcium 9.2 MG/DL (8.5-10.1); Potassium 3.9 MMOL/L (3.5-5.1)
[2021-11-29] MEDS: FENOFIBRATE 160 MG TABLET PO SCH (09:29)
[2021-11-29] MEDS: SPIRONOLACTONE 25 MG TABLET PO SCH (09:30)
[2021-11-29] MEDS: POTASSIUM CHLORIDE 20 MEQ TABLET PO SCH (09:30)
[2021-11-29] MEDS: CLOPIDOGREL 75 MG TABLET PO SCH (09:30)
[2021-11-29] MEDS: PANTOPRAZOLE 40 MG TABLET PO SCH ×2 (09:30→21:24)
[2021-11-29] MEDS: ATORVASTATIN 80 MG TABLET PO SCH (09:30)
[2021-11-29] MEDS: ASCORBIC ACID 500 MG TABLET PO SCH (09:30)
[2021-11-29] MEDS: LEVOTHYROXINE 50 MCG TABLET PO SCH (09:30)
[2021-11-29] MEDS: carvediloL 3.125 MG TABLET PO SCH ×2 (09:30→21:24)
[2021-11-29] MEDS: CETIRIZINE 10 MG TABLET PO SCH (09:30)
[2021-11-29] MEDS: APIXABAN 5 MG TABLET PO SCH ×2 (09:30→21:25)
[2021-11-29] MEDS: hydrALAZINE 10 MG TABLET PO SCH ×3 (09:30→21:25)
[2021-11-29] MEDS: INSULIN GLARGINE 100 UNIT/ML SUBCUT SCH ×2 (09:31→21:26)
[2021-11-29] MEDS: KETOCONAZOLE 2% CREAM 30 GM TUBE TOP SCH ×2 (09:32→21:29)
[2021-11-29] MEDS: BUDESONIDE/FORMOTEROL 160-4.5 INHALER 6 GM INH SCH (09:32)
[2021-11-29] MEDS: INSULIN LISPRO 100 UNIT/ML SUBCUT SCH ×4 (10:45→21:26)
[2021-11-29] MEDS ORDERED: TUBERCULIN SKIN TEST 0.1 ML SYRINGE INTRADERM ONE (15:30)
[2021-11-29] MEDS: DONEPEZIL 5 MG TABLET PO SCH (21:24)
[2021-11-30] MEDS: INSULIN REGULAR 100 UNIT/ML SUBCUT SCH ×3 (01:05→12:54)
[2021-11-30] MEDS: ALBUTEROL/IPRATROPIUM 3 ML NEB RESP TX SCH ×2 (01:20→07:25)
[2021-11-30 06:24] LABS: Basophils % 0.3 % (0.0-0.8); Eosinophils # 0.4 10*3/uL (0.0-0.87); Hematocrit 40.7 VOL% (35.7-47.0); Hemoglobin 13.1 GM/DL (12.0-16.0); Immature Granulocytes % 0.4 %; Immature Granulocytes Absolute 0.05 #; Lymphocytes # 4.8 10*3/uL (1.4-4.0); Lymphocytes % 38.8 % (21.3-54.2); Mean Corpuscular HGB Conc 32.2 GM/DL (32-36); Mean Corpuscular Volume 90.2 FL (87-102); Mean Platelet Volume 10.4 FL (9.6-12.0); Neutrophils % 51.5 % (38.7-73.9); Platelet Count 229 T/CUMM (130-400); Red Blood Count 4.51 MC/CUMM (3.8-5.5); Red Cell Distribution Width 12.3 % (9.3-17.3); White Blood Count 12.4 T/CUMM (4-12)
[2021-11-30 06:44] LABS: Calcium 9.4 MG/DL (8.5-10.1); Osmolality,Calculated 287.8 MOS/KG (273-304); Potassium 4.2 MMOL/L (3.5-5.1)
[2021-11-30] MEDS ORDERED: INSULIN GLARGINE 100 UNIT/ML SUBCUT SCH ×2 (09:00→21:00)
[2021-11-30] MEDS: FENOFIBRATE 160 MG TABLET PO SCH (09:47)
[2021-11-30] MEDS: hydrALAZINE 10 MG TABLET PO SCH (09:47)
[2021-11-30] MEDS: carvediloL 3.125 MG TABLET PO SCH (09:47)
[2021-11-30] MEDS: SPIRONOLACTONE 25 MG TABLET PO SCH (09:47)
[2021-11-30] MEDS: PANTOPRAZOLE 40 MG TABLET PO SCH (09:47)
[2021-11-30] MEDS: APIXABAN 5 MG TABLET PO SCH (09:47)
[2021-11-30] MEDS: LEVOTHYROXINE 50 MCG TABLET PO SCH (09:47)
[2021-11-30] MEDS: CLOPIDOGREL 75 MG TABLET PO SCH (09:47)
[2021-11-30] MEDS: ASCORBIC ACID 500 MG TABLET PO SCH (09:48)
[2021-11-30] MEDS: POTASSIUM CHLORIDE 20 MEQ TABLET PO SCH (09:48)
[2021-11-30] MEDS: CETIRIZINE 10 MG TABLET PO SCH (09:48)
[2021-11-30] MEDS: ATORVASTATIN 80 MG TABLET PO SCH (09:48)
[2021-11-30] MEDS: INSULIN LISPRO 100 UNIT/ML SUBCUT SCH ×2 (09:49→12:54)
[2021-11-30] MEDS: BUDESONIDE/FORMOTEROL 160-4.5 INHALER 6 GM INH SCH (09:56)
[2021-11-30] MEDS: KETOCONAZOLE 2% CREAM 30 GM TUBE TOP SCH (09:56)
[2021-11-30 12:48] VITALS: BP 112/91
== END 2021-11-30 13:22 | disposition home health service (06) | DRG 280 ==
LOC: EDUNIT# → EDBD → N.ED 23:28 → SUATTDRO 11-22 02:13 → N.EDINP 11-22 02:13 → N.CC 11-22 13:45 → N.5E 11-23 10:08 → N.CC 11-23 23:05 → N.TELEN 11-25 14:43
PROVIDERS: ADMIT Internal Medicine; ATTEND Internal Medicine Geriatric Medicine

== ENCOUNTER 2022-05-18 08:40 | Inpatient (IN) ==
[2022-05-18] MEDS ORDERED: methylPREDNISolone SOD SUC 125 MG/2 ML VIAL IV STA (09:07)
[2022-05-18] MEDS ORDERED: ALBUTEROL/IPRATROPIUM 3 ML NEB RESP TX STA (09:07)
[2022-05-18] MEDS ORDERED: ONDANSETRON 4 MG/2 ML VIAL IV ONE (09:07)
[2022-05-18 09:45] LABS: Arterial Base Excess iSTAT 1 MMOL/L (-2.5-2.5); Arterial Bicarbonate iSTAT 24.6 MMOL/L (20-26); Arterial O2 Saturation iSTAT 95 % (95-100); Arterial PCO2 iSTAT 37 MM HG (35-48); Arterial PO2 iSTAT 72 MM HG (80-95); Arterial Total CO2 iSTAT 26 MMO/L (23-27); Arterial pH iSTAT 7.432 (7.35-7.45)
[2022-05-18 12:38] LABS: Basophils % 0.2 % (0.0-0.8); Eosinophils # 0.1 10*3/uL (0.0-0.87); Eosinophils % 0.6 % (0.00-10.9); Hematocrit 40.7 VOL% (35.7-47.0); Hemoglobin 13.5 GM/DL (12.0-16.0); Immature Granulocytes % 0.3 %; Immature Granulocytes Absolute 0.03 #; Lymphocytes # 2.1 10*3/uL (1.4-4.0); Lymphocytes % 20.8 % (21.3-54.2); Mean Corpuscular HGB Conc 33.2 GM/DL (32-36); Mean Corpuscular Volume 88.7 FL (87-102); Monocytes # 0.9 10*3/uL (0.11-0.8); Monocytes % 8.7 % (1.7-12.7); Neutrophils % 69.4 % (38.7-73.9); Platelet Count 198 T/CUMM (130-400); Red Blood Count 4.59 MC/CUMM (3.8-5.5); Red Cell Distribution Width 12.4 % (9.3-17.3)
[2022-05-18 12:51] LABS: INR 0.9; PT Patient Result 10.4 SECS (10.1-12.1)
[2022-05-18 14:24] LABS: Albumin 3.1 G/DL (3.4-5.0); Bilirubin,Total 0.7 MG/DL (0.20-1.00); Calcium 9.3 MG/DL (8.5-10.1); Potassium 4.6 MMOL/L (3.5-5.1); Total Protein 7.2 G/DL (6.4-8.2)
[2022-05-18] MEDS ORDERED: cefTRIAXone 1,000 MG in SODIUM CHLORIDE 0.9% 100 ML IV STA (14:47)
[2022-05-18] MEDS ORDERED: AZITHROMYCIN INJ 500 MG in SODIUM CHLORIDE 0.9% 250 ML IV STA (14:47)
[2022-05-18] MEDS ORDERED: FUROSEMIDE 40 MG/4 ML VIAL IV STA (14:51)
[2022-05-18] MEDS ORDERED: DEXTROSE 10% 250 ML BAG IV PRN (15:39)
[2022-05-18] MEDS ORDERED: GLUCAGON 1 MG VIAL IM PRN ×2 (15:39→15:40)
[2022-05-18] MEDS ORDERED: MAGNESIUM SULF RIDER 4 GM/100 ML PREMIX IV PRN (15:39)
[2022-05-18] MEDS ORDERED: MAGNESIUM SULF RIDER 2 GM/50 ML PREMIX IV PRN (15:39)
[2022-05-18] MEDS ORDERED: ALBUTEROL/IPRATROPIUM 3 ML NEB RESP TX PRN (15:40)
[2022-05-18] MEDS ORDERED: ONDANSETRON 4 MG/2 ML VIAL IV PRN (15:40)
[2022-05-18] MEDS ORDERED: SIMETHICONE CHEW 125 MG TABLET PO PRN (15:40)
[2022-05-18] MEDS ORDERED: ACETAMINOPHEN 325 MG TABLET PO PRN (15:40)
[2022-05-18] MEDS ORDERED: DEXTROSE 50% 25 GM/50 ML VIAL IV PRN (15:40)
[2022-05-18] MEDS ORDERED: hydrALAZINE 20 MG/1 ML VIAL IV PRN (15:40)
[2022-05-18] MEDS: FUROSEMIDE 40 MG/4 ML VIAL IV SCH (16:00)
[2022-05-18] MEDS: DOCUSATE SODIUM 100 MG CAPSULE PO SCH (20:49)
[2022-05-18] MEDS ORDERED: ENOXAPARIN 40 MG/0.4 ML SYRINGE SUBCUT SCH (21:00)
[2022-05-19] MEDS ORDERED: INSULIN LISPRO 100 UNIT/ML ONE (00:58)
[2022-05-19] MEDS: INSULIN LISPRO 100 UNIT/ML SUBCUT SCH ×6 (01:01→21:06)
[2022-05-19 05:03] LABS: Basophils % 0.1 % (0.0-0.8); Eosinophils % 0.2 % (0.00-10.9); Hematocrit 41.3 VOL% (35.7-47.0); Hemoglobin 13.8 GM/DL (12.0-16.0); Immature Granulocytes % 0.3 %; Immature Granulocytes Absolute 0.03 #; Lymphocytes # 1.4 10*3/uL (1.4-4.0); Mean Corpuscular HGB Conc 33.4 GM/DL (32-36); Mean Corpuscular Volume 87.9 FL (87-102); Mean Platelet Volume 10.2 FL (9.6-12.0); Monocytes # 0.6 10*3/uL (0.11-0.8); Monocytes % 5.2 % (1.7-12.7); Neutrophils % 81.2 % (38.7-73.9); Platelet Count 214 T/CUMM (130-400); Red Cell Distribution Width 12.3 % (9.3-17.3); White Blood Count 11.1 T/CUMM (4-12)
[2022-05-19 05:14] LABS: Albumin 3.2 G/DL (3.4-5.0); Bilirubin,Total 0.5 MG/DL (0.20-1.00); Osmolality,Calculated 281.4 MOS/KG (273-304); Risk Ratio 5.2; Total Protein 8.2 G/DL (6.4-8.2)
[2022-05-19] MEDS: DOCUSATE SODIUM 100 MG CAPSULE PO SCH ×2 (08:14→21:05)
[2022-05-19] MEDS: PANTOPRAZOLE 40 MG TABLET PO SCH (08:14)
[2022-05-19] MEDS: FUROSEMIDE 40 MG/4 ML VIAL IV SCH ×2 (08:16→16:05)
[2022-05-19] MEDS ORDERED: NITROGLYCERIN SL 0.4 MG TABLET SL PRN (11:22)
[2022-05-19 12:27] LABS: Bacteria,Urine Occasional /HPF (Few); Mucus,Urine Occasional /LPF (Occasional); RBC,Urine 46 /HPF (0-4); Squamous Epithelial Cell,Urine Occasional /HPF (0-10)
[2022-05-19 12:28] LABS: Urine Appearance Slightly Hazy (Clear); Urine Color Yellow (Yellow)
[2022-05-19 12:29] LABS: Glucose,Urine (UA) 500 mg/dL (Negative); Ketones,Urine Negative (Negative); Nitrite,Urine Negative (Negative); Protein,Urine Negative (Negative); Urine Specific Gravity 1.015 (1.001-1.035); Urine pH 5.5 (4.5-8.0)
[2022-05-19 12:30] LABS: Bilirubin,Urine Negative (Negative); Blood, Urine Trace mg/dL (Negative); Urine Urobilinogen 0.2 eU/dL (<2.0)
[2022-05-19] MEDS ORDERED: METOCLOPRAMIDE 10 MG/2 ML VIAL IV ONE (15:22)
[2022-05-19] MEDS ORDERED: diphenhydrAMINE 50 MG/1 ML VIAL IV ONE (15:22)
[2022-05-19] MEDS: KETOROLAC 15 MG/1 ML VIAL IV SCH ×2 (15:50→21:06)
[2022-05-19] MEDS: cefTRIAXone 1,000 MG in SODIUM CHLORIDE 0.9% 100 ML IV SCH (17:00)
[2022-05-19] MEDS ORDERED: SACUBITRIL/VALSARTAN 49-51 MG TABLET PO SCH (21:00)
[2022-05-19] MEDS: SACUBITRIL/VALSARTAN 49-51 MG TABLET PO SCH (21:05)
[2022-05-19] MEDS: APIXABAN 5 MG TABLET PO SCH (21:06)
[2022-05-20] MEDS: INSULIN LISPRO 100 UNIT/ML SUBCUT SCH ×6 (01:14→22:00)
[2022-05-20 04:12] LABS: Basophils % 0.3 % (0.0-0.8); Eosinophils # 0.1 10*3/uL (0.0-0.87); Eosinophils % 0.7 % (0.00-10.9); Hemoglobin 13.1 GM/DL (12.0-16.0); Immature Granulocytes % 0.3 %; Immature Granulocytes Absolute 0.03 #; Lymphocytes % 34.3 % (21.3-54.2); Mean Corpuscular HGB Conc 32.8 GM/DL (32-36); Mean Corpuscular Volume 89.9 FL (87-102); Mean Platelet Volume 10.5 FL (9.6-12.0); Monocytes # 0.8 10*3/uL (0.11-0.8); Monocytes % 6.6 % (1.7-12.7); Neutrophils % 57.8 % (38.7-73.9); Platelet Count 218 T/CUMM (130-400); Red Blood Count 4.45 MC/CUMM (3.8-5.5); Red Cell Distribution Width 12.5 % (9.3-17.3); White Blood Count 11.7 T/CUMM (4-12)
[2022-05-20 04:31] LABS: Calcium 9.5 MG/DL (8.5-10.1); Osmolality,Calculated 285.5 MOS/KG (273-304); Potassium 3.8 MMOL/L (3.5-5.1)
[2022-05-20] MEDS: KETOROLAC 15 MG/1 ML VIAL IV SCH ×4 (04:45→21:13)
[2022-05-20] MEDS ORDERED: FUROSEMIDE 20 MG/2 ML VIAL IV SCH (09:00)
[2022-05-20] MEDS: DOCUSATE SODIUM 100 MG CAPSULE PO SCH ×2 (09:32→21:13)
[2022-05-20] MEDS: SACUBITRIL/VALSARTAN 49-51 MG TABLET PO SCH ×2 (09:32→21:13)
[2022-05-20] MEDS: PANTOPRAZOLE 40 MG TABLET PO SCH (09:33)
[2022-05-20] MEDS: APIXABAN 5 MG TABLET PO SCH ×2 (09:33→21:13)
[2022-05-20] MEDS: CLOPIDOGREL 75 MG TABLET PO SCH (09:33)
[2022-05-20] MEDS: INSULIN GLARGINE 100 UNIT/ML SUBCUT SCH ×2 (09:33→21:14)
[2022-05-20] MEDS: ISOSORBIDE MONONITRATE 30 MG TABLET PO SCH (09:33)
[2022-05-20] MEDS: FUROSEMIDE 20 MG TABLET PO SCH (09:33)
[2022-05-20] MEDS: ATORVASTATIN 80 MG TABLET PO SCH (09:37)
[2022-05-20] MEDS ORDERED: MECLIZINE 12.5 MG TABLET PO PRN (09:44)
[2022-05-20] MEDS: FUROSEMIDE 40 MG/4 ML VIAL IV SCH (09:49)
[2022-05-20] MEDS: MECLIZINE 12.5 MG TABLET PO SCH ×2 (15:55→21:13)
[2022-05-20] MEDS: cefTRIAXone 1,000 MG in SODIUM CHLORIDE 0.9% 100 ML IV SCH (15:56)
[2022-05-21] MEDS: INSULIN LISPRO 100 UNIT/ML SUBCUT SCH ×4 (03:06→13:33)
[2022-05-21] MEDS: KETOROLAC 15 MG/1 ML VIAL IV SCH ×2 (03:09→08:52)
[2022-05-21 05:28] LABS: Basophils % 0.3 % (0.0-0.8); Eosinophils # 0.3 10*3/uL (0.0-0.87); Eosinophils % 3.2 % (0.00-10.9); Hematocrit 40.2 VOL% (35.7-47.0); Immature Granulocytes % 0.3 %; Immature Granulocytes Absolute 0.03 #; Lymphocytes # 3.5 10*3/uL (1.4-4.0); Lymphocytes % 38.5 % (21.3-54.2); Mean Corpuscular HGB Conc 32.3 GM/DL (32-36); Mean Platelet Volume 10.4 FL (9.6-12.0); Monocytes # 0.7 10*3/uL (0.11-0.8); Neutrophils % 49.7 % (38.7-73.9); Platelet Count 223 T/CUMM (130-400); Red Blood Count 4.42 MC/CUMM (3.8-5.5); Red Cell Distribution Width 12.5 % (9.3-17.3)
[2022-05-21 05:44] LABS: Calcium 8.6 MG/DL (8.5-10.1); Osmolality,Calculated 290.7 MOS/KG (273-304); Potassium 3.7 MMOL/L (3.5-5.1)
[2022-05-21] MEDS: FUROSEMIDE 20 MG TABLET PO SCH (08:50)
[2022-05-21] MEDS: MECLIZINE 12.5 MG TABLET PO SCH (08:50)
[2022-05-21] MEDS: DOCUSATE SODIUM 100 MG CAPSULE PO SCH (08:51)
[2022-05-21] MEDS: ATORVASTATIN 80 MG TABLET PO SCH (08:51)
[2022-05-21] MEDS: CLOPIDOGREL 75 MG TABLET PO SCH (08:51)
[2022-05-21] MEDS: INSULIN GLARGINE 100 UNIT/ML SUBCUT SCH (08:51)
[2022-05-21] MEDS: PANTOPRAZOLE 40 MG TABLET PO SCH (08:51)
[2022-05-21] MEDS: ISOSORBIDE MONONITRATE 30 MG TABLET PO SCH (08:51)
[2022-05-21] MEDS: APIXABAN 5 MG TABLET PO SCH (08:51)
[2022-05-21] MEDS: SACUBITRIL/VALSARTAN 49-51 MG TABLET PO SCH (08:51)
[2022-05-21 12:06] VITALS: BP 118/73
[2022-05-21] MEDS ORDERED: carvediloL 3.125 MG TABLET PO SCH (17:00)
== END 2022-05-21 14:40 | disposition home or self-care (01) | DRG 291 ==
LOC: N.ED 08:40 → N.EDINP 15:39 → SUATTDRO 15:39 → N.TELEN 17:40
PROVIDERS: ADMIT Internal Medicine; ATTEND Emergency Medicine

== ENCOUNTER 2022-05-26 21:07 | Inpatient (IN) ==
[2022-05-26] MEDS ORDERED: ETOMIDATE 20 MG/10 ML VIAL IV ONE (21:33)
[2022-05-26] MEDS ORDERED: ROCURONIUM 100 MG/10 ML VIAL IV ONE (21:33)
[2022-05-26 21:34] LABS: Arterial Base Excess iSTAT -17 MMOL/L (-2.5-2.5); Arterial Bicarbonate iSTAT 17.3 MMOL/L (20-26); Arterial O2 Saturation iSTAT 98 % (95-100); Arterial PCO2 iSTAT 81 MM HG (35-48); Arterial PO2 iSTAT 170 MM HG (80-95); Arterial Total CO2 iSTAT 20 MMO/L (23-27); Arterial pH iSTAT 6.937 (7.35-7.45)
[2022-05-26] MEDS ORDERED: SODIUM CHLORIDE 0.9% 1,000 ML IV STA (21:44)
[2022-05-26] MEDS ORDERED: LABETALOL 20 MG/4 ML SYRINGE IV STA (21:48)
[2022-05-26 21:54] LABS: Basophils # 0.1 10*3/uL (0.0-0.2); Basophils % 0.4 % (0.0-0.8); Eosinophils # 0.2 10*3/uL (0.0-0.87); Eosinophils % 1.1 % (0.00-10.9); Hematocrit 46.1 VOL% (35.7-47.0); Hemoglobin 14.3 GM/DL (12.0-16.0); Immature Granulocytes % 3.8 %; Immature Granulocytes Absolute 0.76 #; Mean Corpuscular Volume 96.6 FL (87-102); Mean Platelet Volume 10.6 FL (9.6-12.0); Monocytes # 1.3 10*3/uL (0.11-0.8); Monocytes % 6.5 % (1.7-12.7); NRBC # 0.02 10*3/uL; Neutrophils % 38.2 % (38.7-73.9); Platelet Count 225 T/CUMM (130-400); Red Blood Count 4.77 MC/CUMM (3.8-5.5); Red Cell Distribution Width 12.3 % (9.3-17.3)
[2022-05-26 21:59] LABS: Bilirubin,Urine Negative (Negative); Glucose,Urine (UA) 500 mg/dL (Negative); Ketones,Urine Negative (Negative); Nitrite,Urine Negative (Negative); Protein,Urine >=300 mg/dL (Negative); Urine Appearance Clear (Clear); Urine Color Yellow (Yellow); Urine Specific Gravity 1.025 (1.001-1.035)
[2022-05-26 22:00] LABS: Blood, Urine Small mg/dL (Negative); Urine Urobilinogen 0.2 eU/dL (<2.0)
[2022-05-26 22:06] LABS: INR 0.9; PT Patient Result 9.9 SECS (10.1-12.1); Partial Thromboplastin Time 25.9 SECS (23.7-32.9)
[2022-05-26 22:13] LABS: Alanine Aminotransferase 78 U/L (13-56); Albumin 2.9 G/DL (3.4-5.0); Alkaline Phosphatase 151 U/L (45-117); Aspartate Amino Transferase 99 U/L (0-37); Blood Urea Nitrogen 16 MG/DL (7-18); Calcium 8.9 MG/DL (8.5-10.1); Carbon Dioxide 21 MMOL/L (21-32); Chloride 101 MMOL/L (98-107); Glucose 484 MG/DL (74-106); Osmolality,Calculated 294.8 MOS/KG (273-304); Potassium 3.6 MMOL/L (3.5-5.1); Sodium 137 MMOL/L (136-145); Total Protein 6.8 G/DL (6.4-8.2)
[2022-05-26 22:15] LABS: Hyaline Casts,Urine 4 /LPF (0-3); Mucus,Urine Occasional /LPF (Occasional); Squamous Epithelial Cell,Urine Occasional /HPF (0-10)
[2022-05-26 22:18] LABS: Lymphocytes 57 % (20-55); Myelocytes 2 %; Total Cells Counted 100
[2022-05-26 22:19] LABS: Platelet Estimate Normal
[2022-05-26] MEDS ORDERED: PIPERACILLIN/TAZOBACTAM 3,375 MG in SODIUM CHLORIDE 0.9% 100 ML IV STA (22:22)
[2022-05-26] MEDS ORDERED: SODIUM CHLORIDE 0.9% 2,000 ML IV STA (22:22)
[2022-05-26] MEDS ORDERED: SODIUM BICARBONATE 50 MEQ/50 ML VIAL IV STA (22:53)
[2022-05-26] MEDS ORDERED: SODIUM BICARBONATE 50 MEQ/50 ML VIAL IV ONE (22:55)
[2022-05-26] MEDS ORDERED: ALBUTEROL 2.5 MG/3 ML NEB RESP TX PRN (23:37)
[2022-05-26] MEDS ORDERED: ONDANSETRON 4 MG/2 ML VIAL IV PRN (23:38)
[2022-05-26] MEDS ORDERED: SODIUM CHLORIDE 0.9% 1,000 ML IV SCH (23:45)
[2022-05-26 23:49] LABS: Arterial Base Excess iSTAT -1 MMOL/L (-2.5-2.5); Arterial Bicarbonate iSTAT 28.5 MMOL/L (20-26); Arterial O2 Saturation iSTAT 42 % (95-100); Arterial PCO2 iSTAT 73 MM HG (35-48); Arterial PO2 iSTAT 30 MM HG (80-95); Arterial Total CO2 iSTAT 31 MMO/L (23-27); Arterial pH iSTAT 7.202 (7.35-7.45)
[2022-05-26 23:53] LABS: Arterial Base Excess iSTAT -1 MMOL/L (-2.5-2.5); Arterial Bicarbonate iSTAT 27.3 MMOL/L (20-26); Arterial O2 Saturation iSTAT 100 % (95-100); Arterial PCO2 iSTAT 60 MM HG (35-48); Arterial PO2 iSTAT 249 MM HG (80-95); Arterial Total CO2 iSTAT 29 MMO/L (23-27); Arterial pH iSTAT 7.267 (7.35-7.45)
[2022-05-27] MEDS ORDERED: GLUCAGON 1 MG VIAL IM PRN (00:43)
[2022-05-27] MEDS ORDERED: DEXTROSE 10% 250 ML BAG IV PRN (00:43)
[2022-05-27] MEDS: ALBUTEROL/IPRATROPIUM 3 ML NEB RESP TX SCH ×4 (00:50→18:50)
[2022-05-27] MEDS ORDERED: ROCURONIUM 100 MG/10 ML VIAL IV ONE ×2 (01:14→01:30)
[2022-05-27] MEDS ORDERED: SODIUM CHLORIDE 0.9% 1,000 ML IV ONE (01:15)
[2022-05-27] MEDS: FAMOTIDINE 20 MG/2 ML VIAL IV SCH ×2 (01:33→12:59)
[2022-05-27] MEDS: MIDAZOLAM 100 MG in SODIUM CHLORIDE 0.9% 80 ML IV PRN ×2 (02:09→22:17)
[2022-05-27 03:18] LABS: Basophils # 0.1 10*3/uL (0.0-0.2); Basophils % 0.3 % (0.0-0.8); Eosinophils # 0.1 10*3/uL (0.0-0.87); Eosinophils % 0.3 % (0.00-10.9); Hematocrit 47.3 VOL% (35.7-47.0); Hemoglobin 14.3 GM/DL (12.0-16.0); Immature Granulocytes % 1.1 %; Immature Granulocytes Absolute 0.19 #; Lymphocytes # 2.8 10*3/uL (1.4-4.0); Lymphocytes % 16.6 % (21.3-54.2); Mean Corpuscular HGB Conc 30.2 GM/DL (32-36); Mean Corpuscular Volume 96.9 FL (87-102); Mean Platelet Volume 10.5 FL (9.6-12.0); Monocytes # 0.9 10*3/uL (0.11-0.8); Monocytes % 5.5 % (1.7-12.7); Neutrophils % 76.2 % (38.7-73.9); Platelet Count 191 T/CUMM (130-400); Red Blood Count 4.88 MC/CUMM (3.8-5.5); Red Cell Distribution Width 12.5 % (9.3-17.3); White Blood Count 17.1 T/CUMM (4-12)
[2022-05-27 03:48] LABS: Arterial Base Excess iSTAT -3 MMOL/L (-2.5-2.5); Arterial Bicarbonate iSTAT 23.5 MMOL/L (20-26); Arterial O2 Saturation iSTAT 98 % (95-100); Arterial PCO2 iSTAT 48 MM HG (35-48); Arterial PO2 iSTAT 114 MM HG (80-95); Arterial Total CO2 iSTAT 25 MMO/L (23-27); Arterial pH iSTAT 7.296 (7.35-7.45)
[2022-05-27 03:58] LABS: Albumin 2.5 G/DL (3.4-5.0); Bilirubin,Total 0.8 MG/DL (0.20-1.00); Osmolality,Calculated 282.8 MOS/KG (273-304); Potassium 5.5 MMOL/L (3.5-5.1); Total Protein 6.8 G/DL (6.4-8.2)
[2022-05-27] MEDS ORDERED: INSULIN REGULAR 100 UNIT/ML SUBCUT SCH ×2 (05:00→07:30)
[2022-05-27] MEDS ORDERED: PIPERACILLIN/TAZOBACTAM 3,375 MG in SODIUM CHLORIDE 0.9% 100 ML IV SCH (06:00)
[2022-05-27] MEDS ORDERED: SODIUM POLYSTYRENE SULFATE 15 GM/60 ML BOTTLE PO ONE (06:36)
[2022-05-27] MEDS ORDERED: MONTELUKAST 10 MG TABLET PO PRN (07:21)
[2022-05-27] MEDS: ACETAMINOPHEN 325 MG TABLET PO PRN (08:00)
[2022-05-27] MEDS ORDERED: FUROSEMIDE 40 MG/4 ML VIAL IV SCH ×2 (08:00→16:00)
[2022-05-27] MEDS ORDERED: FUROSEMIDE 40 MG/4 ML VIAL IV ONE (08:47)
[2022-05-27] MEDS ORDERED: ISOSORBIDE MONONITRATE 30 MG TABLET PO SCH (09:00)
[2022-05-27] MEDS ORDERED: SODIUM BICARB INJ 50 MEQ in SODIUM CHLORIDE 0.45% 1,000 ML IV SCH (09:00)
[2022-05-27] MEDS ORDERED: ENOXAPARIN 40 MG/0.4 ML SYRINGE SUBCUT SCH (09:00)
[2022-05-27] MEDS ORDERED: APIXABAN 5 MG TABLET PO SCH (09:00)
[2022-05-27 09:12] LABS: Albumin 2.5 G/DL (3.4-5.0); Bilirubin,Total 0.5 MG/DL (0.20-1.00); Osmolality,Calculated 292.8 MOS/KG (273-304); Total Protein 6.4 G/DL (6.4-8.2)
[2022-05-27] MEDS: TOPIRAMATE 25 MG TABLET PO SCH (09:59)
[2022-05-27] MEDS: ISOSORBIDE DINITRATE 20 MG TABLET NG SCH ×2 (09:59→20:05)
[2022-05-27] MEDS: APIXABAN 5 MG TABLET NG SCH ×2 (09:59→20:05)
[2022-05-27] MEDS: LEVOTHYROXINE 50 MCG TABLET PO SCH (09:59)
[2022-05-27] MEDS: SERTRALINE 50 MG TABLET PO SCH (09:59)
[2022-05-27] MEDS: CLOPIDOGREL 75 MG TABLET PO SCH (09:59)
[2022-05-27] MEDS ORDERED: INSULIN LISPRO 100 UNIT/ML SUBCUT SCH (10:00)
[2022-05-27] MEDS: INSULIN GLARGINE 100 UNIT/ML SUBCUT SCH (10:12)
[2022-05-27] MEDS: INSULIN LISPRO 100 UNIT/ML SUBCUT SCH ×3 (12:59→20:05)
[2022-05-27 13:07] LABS: Osmolality,Calculated 293.5 MOS/KG (273-304); Potassium 3.2 MMOL/L (3.5-5.1)
[2022-05-27] MEDS ORDERED: MAGNESIUM SULF RIDER 2 GM/50 ML PREMIX IV PRN (13:13)
[2022-05-27] MEDS ORDERED: NOREPINEPHRINE 8 MG in SODIUM CHLORIDE 0.9% 242 ML IV PRN (13:16)
[2022-05-27] MEDS ORDERED: NOREPINEPHRINE 4 MG/4 ML VIAL IV ONE (13:24)
[2022-05-27] MEDS: PIPERACILLIN/TAZOBACTAM 3,375 MG in SODIUM CHLORIDE 0.9% 100 ML IV SCH ×2 (14:50→22:17)
[2022-05-27] MEDS: POTASSIUM CHLORIDE 20 MEQ TABLET PO PRN ×4 (14:52→22:17)
[2022-05-27] MEDS: FUROSEMIDE 40 MG/4 ML VIAL IV SCH (17:32)
[2022-05-27] MEDS ORDERED: INSULIN GLARGINE 100 UNIT/ML SUBCUT SCH (21:00)
[2022-05-27] MEDS: MORPHINE 2 MG/1 ML SYRINGE IV PRN (21:14)
[2022-05-28] MEDS: INSULIN LISPRO 100 UNIT/ML SUBCUT SCH ×6 (00:07→23:52)
[2022-05-28] MEDS: FAMOTIDINE 20 MG/2 ML VIAL IV SCH ×2 (00:08→14:10)
[2022-05-28] MEDS: ALBUTEROL/IPRATROPIUM 3 ML NEB RESP TX SCH ×4 (00:48→19:03)
[2022-05-28] MEDS: MORPHINE 2 MG/1 ML SYRINGE IV PRN (01:14)
[2022-05-28 04:19] LABS: Basophils % 0.2 % (0.0-0.8); Eosinophils # 0.2 10*3/uL (0.0-0.87); Eosinophils % 1.4 % (0.00-10.9); Hematocrit 31.4 VOL% (35.7-47.0); Hemoglobin 10.3 GM/DL (12.0-16.0); Immature Granulocytes % 0.3 %; Immature Granulocytes Absolute 0.04 #; Lymphocytes # 2.6 10*3/uL (1.4-4.0); Lymphocytes % 21.6 % (21.3-54.2); Mean Corpuscular HGB Conc 32.8 GM/DL (32-36); Monocytes # 0.7 10*3/uL (0.11-0.8); Neutrophils % 70.5 % (38.7-73.9); Platelet Count 146 T/CUMM (130-400); Red Blood Count 3.49 MC/CUMM (3.8-5.5); Red Cell Distribution Width 12.8 % (9.3-17.3)
[2022-05-28 04:25] LABS: Calcium 7.6 MG/DL (8.5-10.1); Potassium 2.8 MMOL/L (3.5-5.1)
[2022-05-28 04:50] LABS: Arterial Base Excess iSTAT 3 MMOL/L (-2.5-2.5); Arterial Bicarbonate iSTAT 26.6 MMOL/L (20-26); Arterial O2 Saturation iSTAT 100 % (95-100); Arterial PCO2 iSTAT 35 MM HG (35-48); Arterial PO2 iSTAT 347 MM HG (80-95); Arterial Total CO2 iSTAT 28 MMO/L (23-27); Arterial pH iSTAT 7.486 (7.35-7.45)
[2022-05-28] MEDS: POTASSIUM CHLORIDE 20 MEQ TABLET PO PRN (04:55)
[2022-05-28] MEDS: LEVOTHYROXINE 50 MCG TABLET PO SCH (05:49)
[2022-05-28 05:52] LABS: Albumin 2.2 G/DL (3.4-5.0); Bilirubin,Total 0.7 MG/DL (0.20-1.00); Osmolality,Calculated 283.3 MOS/KG (273-304); Total Protein 5.7 G/DL (6.4-8.2)
[2022-05-28 05:58] LABS: Potassium 2.5 MMOL/L (3.5-5.1)
[2022-05-28] MEDS: PIPERACILLIN/TAZOBACTAM 3,375 MG in SODIUM CHLORIDE 0.9% 100 ML IV SCH (06:04)
[2022-05-28] MEDS ORDERED: POTASSIUM CHLORIDE 20 MEQ TABLET PO SCH (08:00)
[2022-05-28] MEDS: MEROPENEM 500 MG in SODIUM CHLORIDE 0.9% 100 ML IV SCH ×3 (08:40→20:00)
[2022-05-28] MEDS: metroNIDAZOLE INJ 500 MG/100 ML PREMIX IV SCH ×3 (08:40→23:50)
[2022-05-28] MEDS: INSULIN GLARGINE 100 UNIT/ML SUBCUT SCH (08:40)
[2022-05-28] MEDS: FUROSEMIDE 40 MG/4 ML VIAL IV SCH ×2 (08:40→15:40)
[2022-05-28] MEDS: APIXABAN 5 MG TABLET NG SCH ×2 (08:40→20:38)
[2022-05-28] MEDS: ISOSORBIDE DINITRATE 20 MG TABLET NG SCH ×2 (08:40→20:38)
[2022-05-28] MEDS: SERTRALINE 50 MG TABLET PO SCH (08:40)
[2022-05-28] MEDS: TOPIRAMATE 25 MG TABLET PO SCH (08:50)
[2022-05-28] MEDS: CLOPIDOGREL 75 MG TABLET PO SCH (08:50)
[2022-05-28] MEDS: POTASSIUM BICARB EFFERVESCENT 20 MEQ TAB.EFF PO SCH ×4 (12:15→23:52)
[2022-05-28] MEDS: METOPROLOL TARTRATE 25 MG TABLET NG SCH ×2 (14:00→20:38)
[2022-05-28 17:34] LABS: Calcium 8.6 MG/DL (8.5-10.1); Osmolality,Calculated 282.7 MOS/KG (273-304); Potassium 3.5 MMOL/L (3.5-5.1)
[2022-05-28] MEDS ORDERED: DIGOXIN 0.5 MG/2 ML AMP IV ONE ×2 (17:37→18:30)
[2022-05-28] MEDS: ACETAMINOPHEN 325 MG TABLET PO PRN (20:03)
[2022-05-28] MEDS: MIDAZOLAM 100 MG in SODIUM CHLORIDE 0.9% 80 ML IV PRN (23:50)
[2022-05-29] MEDS: ALBUTEROL/IPRATROPIUM 3 ML NEB RESP TX SCH ×4 (00:06→19:36)
[2022-05-29] MEDS: MEROPENEM 500 MG in SODIUM CHLORIDE 0.9% 100 ML IV SCH ×4 (01:10→20:15)
[2022-05-29] MEDS: FAMOTIDINE 20 MG/2 ML VIAL IV SCH ×2 (01:14→13:05)
[2022-05-29 03:56] LABS: Arterial Base Excess iSTAT 4 MMOL/L (-2.5-2.5); Arterial Bicarbonate iSTAT 29.4 MMOL/L (20-26); Arterial O2 Saturation iSTAT 100 % (95-100); Arterial PCO2 iSTAT 45 MM HG (35-48); Arterial PO2 iSTAT 204 MM HG (80-95); Arterial Total CO2 iSTAT 31 MMO/L (23-27); Arterial pH iSTAT 7.423 (7.35-7.45)
[2022-05-29 04:26] LABS: Basophils % 0.2 % (0.0-0.8); Eosinophils # 0.2 10*3/uL (0.0-0.87); Eosinophils % 1.9 % (0.00-10.9); Hematocrit 31.1 VOL% (35.7-47.0); Immature Granulocytes % 0.5 %; Immature Granulocytes Absolute 0.07 #; Lymphocytes # 2.1 10*3/uL (1.4-4.0); Lymphocytes % 16.1 % (21.3-54.2); Mean Corpuscular HGB Conc 32.2 GM/DL (32-36); Mean Corpuscular Volume 91.5 FL (87-102); Mean Platelet Volume 10.2 FL (9.6-12.0); Monocytes # 0.8 10*3/uL (0.11-0.8); Monocytes % 6.6 % (1.7-12.7); Neutrophils % 74.7 % (38.7-73.9); Platelet Count 146 T/CUMM (130-400); Red Cell Distribution Width 12.9 % (9.3-17.3); White Blood Count 12.8 T/CUMM (4-12)
[2022-05-29 04:49] LABS: Albumin 2.2 G/DL (3.4-5.0); Bilirubin,Total 0.5 MG/DL (0.20-1.00); Calcium 8.5 MG/DL (8.5-10.1); Osmolality,Calculated 284.5 MOS/KG (273-304); Potassium 3.6 MMOL/L (3.5-5.1)
[2022-05-29 04:53] LABS: Calcium 7.9 MG/DL (8.5-10.1); Osmolality,Calculated 288.3 MOS/KG (273-304); Potassium 3.7 MMOL/L (3.5-5.1)
[2022-05-29] MEDS: LEVOTHYROXINE 50 MCG TABLET PO SCH (05:48)
[2022-05-29] MEDS: INSULIN LISPRO 100 UNIT/ML SUBCUT SCH ×3 (05:48→17:35)
[2022-05-29] MEDS: FUROSEMIDE 40 MG/4 ML VIAL IV SCH ×2 (07:30→16:00)
[2022-05-29] MEDS: metroNIDAZOLE INJ 500 MG/100 ML PREMIX IV SCH ×2 (07:35→16:00)
[2022-05-29] MEDS: INSULIN GLARGINE 100 UNIT/ML SUBCUT SCH ×2 (08:00→09:40)
[2022-05-29] MEDS: SERTRALINE 50 MG TABLET PO SCH (08:05)
[2022-05-29] MEDS: APIXABAN 5 MG TABLET NG SCH ×2 (08:05→20:14)
[2022-05-29] MEDS: TOPIRAMATE 25 MG TABLET PO SCH (08:05)
[2022-05-29] MEDS: METOPROLOL TARTRATE 25 MG TABLET NG SCH ×2 (08:05→20:14)
[2022-05-29] MEDS: CLOPIDOGREL 75 MG TABLET PO SCH (08:05)
[2022-05-29] MEDS: POTASSIUM BICARB EFFERVESCENT 20 MEQ TAB.EFF PO PRN ×2 (08:05→09:50)
[2022-05-29] MEDS: ISOSORBIDE DINITRATE 20 MG TABLET NG SCH ×2 (08:05→20:14)
[2022-05-29] MEDS: SACUBITRIL/VALSARTAN 49-51 MG TABLET PO SCH ×2 (09:50→20:14)
[2022-05-29] MEDS: glipiZIDE 10 MG TABLET PO SCH (09:50)
[2022-05-29] MEDS ORDERED: METOPROLOL TARTRATE 25 MG TABLET NG ONE (10:09)
[2022-05-29 11:31] LABS: High Sensitive Troponin I* 2159.4 ng/L (0-54)
[2022-05-29] MEDS: ACETAMINOPHEN 325 MG TABLET PO PRN (20:27)
[2022-05-30] MEDS: ALBUTEROL/IPRATROPIUM 3 ML NEB RESP TX SCH ×4 (00:13→19:01)
[2022-05-30] MEDS: INSULIN LISPRO 100 UNIT/ML SUBCUT SCH ×5 (00:26→23:41)
[2022-05-30] MEDS: FAMOTIDINE 20 MG/2 ML VIAL IV SCH ×2 (00:28→13:40)
[2022-05-30] MEDS: metroNIDAZOLE INJ 500 MG/100 ML PREMIX IV SCH (00:30)
[2022-05-30] MEDS: MEROPENEM 500 MG in SODIUM CHLORIDE 0.9% 100 ML IV SCH ×4 (01:36→20:15)
[2022-05-30 03:54] LABS: Basophils # 0.1 10*3/uL (0.0-0.2); Basophils % 0.4 % (0.0-0.8); Eosinophils # 0.3 10*3/uL (0.0-0.87); Hematocrit 33.5 VOL% (35.7-47.0); Hemoglobin 10.7 GM/DL (12.0-16.0); Immature Granulocytes % 0.4 %; Immature Granulocytes Absolute 0.06 #; Lymphocytes # 2.6 10*3/uL (1.4-4.0); Lymphocytes % 19.7 % (21.3-54.2); Mean Corpuscular HGB Conc 31.9 GM/DL (32-36); Mean Corpuscular Volume 93.6 FL (87-102); Mean Platelet Volume 10.5 FL (9.6-12.0); Monocytes # 0.8 10*3/uL (0.11-0.8); Monocytes % 5.9 % (1.7-12.7); Neutrophils % 71.6 % (38.7-73.9); Platelet Count 159 T/CUMM (130-400); Red Blood Count 3.58 MC/CUMM (3.8-5.5); Red Cell Distribution Width 12.8 % (9.3-17.3); White Blood Count 13.4 T/CUMM (4-12)
[2022-05-30 04:14] LABS: Calcium 8.7 MG/DL (8.5-10.1); Osmolality,Calculated 289.4 MOS/KG (273-304); Potassium 3.8 MMOL/L (3.5-5.1)
[2022-05-30 04:15] LABS: High Sensitive Troponin I* 1864.1 ng/L (0-54)
[2022-05-30 04:17] LABS: Arterial Base Excess iSTAT 2 MMOL/L (-2.5-2.5); Arterial Bicarbonate iSTAT 27.5 MMOL/L (20-26); Arterial O2 Saturation iSTAT 99 % (95-100); Arterial PCO2 iSTAT 44 MM HG (35-48); Arterial PO2 iSTAT 156 MM HG (80-95); Arterial Total CO2 iSTAT 29 MMO/L (23-27); Arterial pH iSTAT 7.402 (7.35-7.45)
[2022-05-30] MEDS: LEVOTHYROXINE 50 MCG TABLET PO SCH (06:29)
[2022-05-30] MEDS: POTASSIUM BICARB EFFERVESCENT 20 MEQ TAB.EFF PO PRN (06:29)
[2022-05-30] MEDS: INSULIN GLARGINE 100 UNIT/ML SUBCUT SCH (08:19)
[2022-05-30] MEDS: SACUBITRIL/VALSARTAN 49-51 MG TABLET PO SCH ×2 (08:20→20:17)
[2022-05-30] MEDS: FUROSEMIDE 40 MG/4 ML VIAL IV SCH ×2 (08:20→16:07)
[2022-05-30] MEDS: TOPIRAMATE 25 MG TABLET PO SCH (08:20)
[2022-05-30] MEDS: SERTRALINE 50 MG TABLET PO SCH (08:20)
[2022-05-30] MEDS: glipiZIDE 10 MG TABLET PO SCH (08:21)
[2022-05-30] MEDS: METOPROLOL TARTRATE 25 MG TABLET NG SCH ×2 (08:21→20:17)
[2022-05-30] MEDS: CLOPIDOGREL 75 MG TABLET PO SCH (08:21)
[2022-05-30] MEDS: ISOSORBIDE DINITRATE 20 MG TABLET NG SCH ×2 (08:21→20:17)
[2022-05-30] MEDS: APIXABAN 5 MG TABLET NG SCH ×2 (08:21→20:17)
[2022-05-30] MEDS: MONTELUKAST 10 MG TABLET PO SCH (20:17)
[2022-05-31] MEDS: ALBUTEROL/IPRATROPIUM 3 ML NEB RESP TX SCH ×4 (00:06→18:58)
[2022-05-31] MEDS: MEROPENEM 500 MG in SODIUM CHLORIDE 0.9% 100 ML IV SCH ×4 (01:45→20:20)
[2022-05-31 04:05] LABS: Arterial Base Excess iSTAT 6 MMOL/L (-2.5-2.5); Arterial Bicarbonate iSTAT 31.4 MMOL/L (20-26); Arterial O2 Saturation iSTAT 97 % (95-100); Arterial PCO2 iSTAT 49 MM HG (35-48); Arterial PO2 iSTAT 86 MM HG (80-95); Arterial Total CO2 iSTAT 33 MMO/L (23-27); Arterial pH iSTAT 7.416 (7.35-7.45)
[2022-05-31 04:14] LABS: Basophils # 0.1 10*3/uL (0.0-0.2); Basophils % 0.4 % (0.0-0.8); Eosinophils # 0.3 10*3/uL (0.0-0.87); Eosinophils % 1.9 % (0.00-10.9); Hematocrit 37.9 VOL% (35.7-47.0); Hemoglobin 12.2 GM/DL (12.0-16.0); Immature Granulocytes % 0.3 %; Immature Granulocytes Absolute 0.05 #; Lymphocytes # 2.9 10*3/uL (1.4-4.0); Lymphocytes % 20.2 % (21.3-54.2); Mean Corpuscular HGB Conc 32.2 GM/DL (32-36); Mean Corpuscular Volume 92.2 FL (87-102); Mean Platelet Volume 10.2 FL (9.6-12.0); Monocytes # 0.8 10*3/uL (0.11-0.8); Monocytes % 5.7 % (1.7-12.7); Neutrophils % 71.5 % (38.7-73.9); Platelet Count 214 T/CUMM (130-400); Red Blood Count 4.11 MC/CUMM (3.8-5.5); Red Cell Distribution Width 12.8 % (9.3-17.3); White Blood Count 14.6 T/CUMM (4-12)
[2022-05-31 04:35] LABS: Calcium 9.9 MG/DL (8.5-10.1); Osmolality,Calculated 292.4 MOS/KG (273-304)
[2022-05-31] MEDS: LEVOTHYROXINE 50 MCG TABLET PO SCH (05:55)
[2022-05-31] MEDS: INSULIN LISPRO 100 UNIT/ML SUBCUT SCH ×3 (05:55→18:15)
[2022-05-31] MEDS: METOPROLOL TARTRATE 25 MG TABLET NG SCH ×2 (08:11→20:27)
[2022-05-31] MEDS: glipiZIDE 10 MG TABLET PO SCH (08:11)
[2022-05-31] MEDS: CLOPIDOGREL 75 MG TABLET PO SCH (08:11)
[2022-05-31] MEDS: SERTRALINE 50 MG TABLET PO SCH (08:12)
[2022-05-31] MEDS: FUROSEMIDE 40 MG/4 ML VIAL IV SCH (08:12)
[2022-05-31] MEDS: APIXABAN 5 MG TABLET NG SCH ×2 (08:12→20:26)
[2022-05-31] MEDS: INSULIN GLARGINE 100 UNIT/ML SUBCUT SCH (08:12)
[2022-05-31] MEDS: SACUBITRIL/VALSARTAN 49-51 MG TABLET PO SCH ×2 (08:12→20:26)
[2022-05-31] MEDS: ISOSORBIDE DINITRATE 20 MG TABLET NG SCH ×2 (08:12→20:26)
[2022-05-31] MEDS: TOPIRAMATE 25 MG TABLET PO SCH (08:12)
[2022-05-31] MEDS: FAMOTIDINE 20 MG/2 ML VIAL IV SCH ×2 (13:45)
[2022-05-31] MEDS: MONTELUKAST 10 MG TABLET PO SCH (20:27)
[2022-06-01] MEDS: ALBUTEROL/IPRATROPIUM 3 ML NEB RESP TX SCH ×4 (00:15→22:12)
[2022-06-01] MEDS: INSULIN LISPRO 100 UNIT/ML SUBCUT SCH ×4 (01:11→19:25)
[2022-06-01] MEDS: MEROPENEM 500 MG in SODIUM CHLORIDE 0.9% 100 ML IV SCH ×2 (01:12→09:19)
[2022-06-01] MEDS: FAMOTIDINE 20 MG/2 ML VIAL IV SCH ×2 (01:12→12:42)
[2022-06-01] MEDS: LEVOTHYROXINE 50 MCG TABLET PO SCH (05:42)
[2022-06-01 06:04] LABS: Basophils # 0.1 10*3/uL (0.0-0.2); Basophils % 0.3 % (0.0-0.8); Eosinophils # 0.3 10*3/uL (0.0-0.87); Eosinophils % 2.3 % (0.00-10.9); Hematocrit 38.7 VOL% (35.7-47.0); Hemoglobin 12.3 GM/DL (12.0-16.0); Immature Granulocytes % 0.4 %; Immature Granulocytes Absolute 0.06 #; Lymphocytes # 3.2 10*3/uL (1.4-4.0); Lymphocytes % 22.1 % (21.3-54.2); Mean Corpuscular HGB Conc 31.8 GM/DL (32-36); Mean Corpuscular Volume 92.6 FL (87-102); Mean Platelet Volume 10.3 FL (9.6-12.0); Monocytes % 6.9 % (1.7-12.7); Platelet Count 251 T/CUMM (130-400); Red Blood Count 4.18 MC/CUMM (3.8-5.5); Red Cell Distribution Width 12.7 % (9.3-17.3); White Blood Count 14.5 T/CUMM (4-12)
[2022-06-01 06:27] LABS: Calcium 10.1 MG/DL (8.5-10.1); Osmolality,Calculated 294.3 MOS/KG (273-304); Potassium 4.3 MMOL/L (3.5-5.1)
[2022-06-01] MEDS: SACUBITRIL/VALSARTAN 49-51 MG TABLET PO SCH ×2 (09:19→21:46)
[2022-06-01] MEDS: ATORVASTATIN 80 MG TABLET PO SCH (09:19)
[2022-06-01] MEDS: SERTRALINE 50 MG TABLET PO SCH (09:20)
[2022-06-01] MEDS: CLOPIDOGREL 75 MG TABLET PO SCH (09:20)
[2022-06-01] MEDS: APIXABAN 5 MG TABLET NG SCH ×2 (09:20→21:45)
[2022-06-01] MEDS: ISOSORBIDE DINITRATE 20 MG TABLET NG SCH ×2 (09:20→21:45)
[2022-06-01] MEDS: METOPROLOL TARTRATE 25 MG TABLET NG SCH ×2 (09:20→21:46)
[2022-06-01] MEDS: INSULIN GLARGINE 100 UNIT/ML SUBCUT SCH (09:20)
[2022-06-01] MEDS: glipiZIDE 10 MG TABLET PO SCH ×2 (09:20→17:28)
[2022-06-01] MEDS: TOPIRAMATE 25 MG TABLET PO SCH (09:20)
[2022-06-01] MEDS: FUROSEMIDE 40 MG/4 ML VIAL IV SCH (09:23)
[2022-06-01] MEDS: DOXYCYCLINE HYCLATE INJ 100 MG in SODIUM CHLORIDE 0.9% 100 ML IV SCH (12:46)
[2022-06-01] MEDS: cefTRIAXone 1,000 MG in SODIUM CHLORIDE 0.9% 100 ML IV SCH (15:10)
[2022-06-01] MEDS: MONTELUKAST 10 MG TABLET PO SCH (21:45)
[2022-06-01] MEDS: ACETYLCYSTEINE 20% 800 MG/4 ML VIAL RESP TX SCH (22:12)
[2022-06-02] MEDS: ALBUTEROL/IPRATROPIUM 3 ML NEB RESP TX SCH ×4 (01:05→19:20)
[2022-06-02] MEDS: DOXYCYCLINE HYCLATE INJ 100 MG in SODIUM CHLORIDE 0.9% 100 ML IV SCH ×2 (01:10→12:39)
[2022-06-02] MEDS: FAMOTIDINE 20 MG/2 ML VIAL IV SCH ×2 (01:10→12:35)
[2022-06-02] MEDS: INSULIN LISPRO 100 UNIT/ML SUBCUT SCH ×4 (01:19→17:20)
[2022-06-02 05:50] LABS: Basophils # 0.1 10*3/uL (0.0-0.2); Basophils % 0.4 % (0.0-0.8); Eosinophils # 0.3 10*3/uL (0.0-0.87); Eosinophils % 2.3 % (0.00-10.9); Hematocrit 37.4 VOL% (35.7-47.0); Hemoglobin 11.2 GM/DL (12.0-16.0); Immature Granulocytes % 0.3 %; Immature Granulocytes Absolute 0.04 #; Lymphocytes # 3.3 10*3/uL (1.4-4.0); Lymphocytes % 25.6 % (21.3-54.2); Mean Corpuscular HGB Conc 29.9 GM/DL (32-36); Mean Corpuscular Volume 96.9 FL (87-102); Monocytes # 0.9 10*3/uL (0.11-0.8); Neutrophils % 64.4 % (38.7-73.9); Platelet Count 277 T/CUMM (130-400); Red Blood Count 3.86 MC/CUMM (3.8-5.5); Red Cell Distribution Width 12.6 % (9.3-17.3); White Blood Count 12.8 T/CUMM (4-12)
[2022-06-02] MEDS: LEVOTHYROXINE 50 MCG TABLET PO SCH (05:54)
[2022-06-02 06:10] LABS: Calcium 9.2 MG/DL (8.5-10.1); Osmolality,Calculated 304.1 MOS/KG (273-304); Potassium 4.8 MMOL/L (3.5-5.1)
[2022-06-02] MEDS: ACETYLCYSTEINE 20% 800 MG/4 ML VIAL RESP TX SCH ×3 (07:45→15:05)
[2022-06-02] MEDS: APIXABAN 5 MG TABLET NG SCH ×2 (10:19→21:59)
[2022-06-02] MEDS: METOPROLOL TARTRATE 25 MG TABLET NG SCH ×2 (10:20→21:59)
[2022-06-02] MEDS: TOPIRAMATE 25 MG TABLET PO SCH (10:20)
[2022-06-02] MEDS: CLOPIDOGREL 75 MG TABLET PO SCH (10:20)
[2022-06-02] MEDS: ATORVASTATIN 80 MG TABLET PO SCH (10:20)
[2022-06-02] MEDS: SACUBITRIL/VALSARTAN 49-51 MG TABLET PO SCH ×2 (10:20→21:59)
[2022-06-02] MEDS: glipiZIDE 10 MG TABLET PO SCH ×2 (10:20→17:19)
[2022-06-02] MEDS: SERTRALINE 50 MG TABLET PO SCH (10:20)
[2022-06-02] MEDS: ISOSORBIDE DINITRATE 20 MG TABLET NG SCH ×2 (10:20→21:59)
[2022-06-02] MEDS: INSULIN GLARGINE 100 UNIT/ML SUBCUT SCH (10:22)
[2022-06-02] MEDS: FUROSEMIDE 40 MG/4 ML VIAL IV SCH (10:25)
[2022-06-02] MEDS: cefTRIAXone 1,000 MG in SODIUM CHLORIDE 0.9% 100 ML IV SCH (12:20)
[2022-06-02] MEDS: MONTELUKAST 10 MG TABLET PO SCH (21:59)
[2022-06-03] MEDS: ALBUTEROL/IPRATROPIUM 3 ML NEB RESP TX SCH ×4 (00:20→19:30)
[2022-06-03] MEDS: DOXYCYCLINE HYCLATE INJ 100 MG in SODIUM CHLORIDE 0.9% 100 ML IV SCH ×2 (01:33→12:30)
[2022-06-03] MEDS: FAMOTIDINE 20 MG/2 ML VIAL IV SCH ×2 (01:33→13:00)
[2022-06-03] MEDS: INSULIN LISPRO 100 UNIT/ML SUBCUT SCH ×4 (01:36→18:16)
[2022-06-03 05:23] LABS: Basophils # 0.1 10*3/uL (0.0-0.2); Basophils % 0.4 % (0.0-0.8); Eosinophils # 0.3 10*3/uL (0.0-0.87); Eosinophils % 2.8 % (0.00-10.9); Hemoglobin 11.1 GM/DL (12.0-16.0); Immature Granulocytes % 0.5 %; Immature Granulocytes Absolute 0.06 #; Lymphocytes # 3.3 10*3/uL (1.4-4.0); Lymphocytes % 26.7 % (21.3-54.2); Mean Corpuscular HGB Conc 30.8 GM/DL (32-36); Mean Platelet Volume 10.9 FL (9.6-12.0); Monocytes # 0.9 10*3/uL (0.11-0.8); Neutrophils % 62.6 % (38.7-73.9); Platelet Count 314 T/CUMM (130-400); Red Blood Count 3.75 MC/CUMM (3.8-5.5); Red Cell Distribution Width 12.6 % (9.3-17.3); White Blood Count 12.3 T/CUMM (4-12)
[2022-06-03 05:37] LABS: Calcium 9.7 MG/DL (8.5-10.1); Osmolality,Calculated 300.5 MOS/KG (273-304); Potassium 4.4 MMOL/L (3.5-5.1)
[2022-06-03] MEDS: LEVOTHYROXINE 50 MCG TABLET PO SCH (05:54)
[2022-06-03] MEDS: ACETYLCYSTEINE 20% 800 MG/4 ML VIAL RESP TX SCH ×2 (07:17→14:20)
[2022-06-03] MEDS: glipiZIDE 10 MG TABLET PO SCH ×2 (08:49→18:16)
[2022-06-03] MEDS: INSULIN GLARGINE 100 UNIT/ML SUBCUT SCH (08:49)
[2022-06-03] MEDS: FUROSEMIDE 40 MG/4 ML VIAL IV SCH (08:52)
[2022-06-03] MEDS: APIXABAN 5 MG TABLET NG SCH ×2 (08:55→21:05)
[2022-06-03] MEDS: ISOSORBIDE DINITRATE 20 MG TABLET NG SCH ×2 (08:55→21:04)
[2022-06-03] MEDS: SACUBITRIL/VALSARTAN 49-51 MG TABLET PO SCH ×2 (08:55→21:04)
[2022-06-03] MEDS: ATORVASTATIN 80 MG TABLET PO SCH (08:56)
[2022-06-03] MEDS: TOPIRAMATE 25 MG TABLET PO SCH (08:57)
[2022-06-03] MEDS: CLOPIDOGREL 75 MG TABLET PO SCH (08:57)
[2022-06-03] MEDS: METOPROLOL TARTRATE 25 MG TABLET NG SCH ×2 (08:57→21:05)
[2022-06-03] MEDS: SERTRALINE 50 MG TABLET PO SCH (08:57)
[2022-06-03] MEDS ORDERED: SODIUM CHLORIDE 0.9% 250 ML IV ONE (09:57)
[2022-06-03] MEDS ORDERED: INSULIN GLARGINE 100 UNIT/ML SUBCUT ONE (10:00)
[2022-06-03] MEDS: cefTRIAXone 1,000 MG in SODIUM CHLORIDE 0.9% 100 ML IV SCH ×2 (13:00→13:31)
[2022-06-03] MEDS: MONTELUKAST 10 MG TABLET PO SCH (21:05)
[2022-06-04] MEDS: FAMOTIDINE 20 MG/2 ML VIAL IV SCH ×2 (00:20→12:17)
[2022-06-04] MEDS: DOXYCYCLINE HYCLATE INJ 100 MG in SODIUM CHLORIDE 0.9% 100 ML IV SCH ×2 (00:20→12:15)
[2022-06-04] MEDS: INSULIN LISPRO 100 UNIT/ML SUBCUT SCH ×4 (00:26→18:35)
[2022-06-04] MEDS: ACETYLCYSTEINE 20% 800 MG/4 ML VIAL RESP TX SCH ×3 (00:40→14:10)
[2022-06-04] MEDS: ALBUTEROL/IPRATROPIUM 3 ML NEB RESP TX SCH ×4 (00:40→19:20)
[2022-06-04] MEDS: LEVOTHYROXINE 50 MCG TABLET PO SCH (05:31)
[2022-06-04 05:46] LABS: Basophils # 0.1 10*3/uL (0.0-0.2); Basophils % 0.4 % (0.0-0.8); Eosinophils # 0.3 10*3/uL (0.0-0.87); Eosinophils % 2.2 % (0.00-10.9); Hematocrit 37.2 VOL% (35.7-47.0); Hemoglobin 11.5 GM/DL (12.0-16.0); Immature Granulocytes % 0.4 %; Immature Granulocytes Absolute 0.04 #; Lymphocytes # 2.7 10*3/uL (1.4-4.0); Lymphocytes % 23.9 % (21.3-54.2); Mean Corpuscular HGB Conc 30.9 GM/DL (32-36); Mean Corpuscular Volume 94.7 FL (87-102); Mean Platelet Volume 10.9 FL (9.6-12.0); Monocytes # 0.8 10*3/uL (0.11-0.8); Monocytes % 6.9 % (1.7-12.7); Neutrophils % 66.2 % (38.7-73.9); Platelet Count 338 T/CUMM (130-400); Red Blood Count 3.93 MC/CUMM (3.8-5.5); Red Cell Distribution Width 12.1 % (9.3-17.3); White Blood Count 11.3 T/CUMM (4-12)
[2022-06-04 06:08] LABS: Calcium 10.2 MG/DL (8.5-10.1); Osmolality,Calculated 299.4 MOS/KG (273-304); Potassium 4.4 MMOL/L (3.5-5.1)
[2022-06-04] MEDS: glipiZIDE 10 MG TABLET PO SCH ×2 (08:25→17:20)
[2022-06-04] MEDS: APIXABAN 5 MG TABLET NG SCH ×2 (08:25→21:42)
[2022-06-04] MEDS: SERTRALINE 50 MG TABLET PO SCH (08:26)
[2022-06-04] MEDS: SACUBITRIL/VALSARTAN 49-51 MG TABLET PO SCH ×2 (08:26→21:42)
[2022-06-04] MEDS: FUROSEMIDE 20 MG TABLET PO SCH (08:26)
[2022-06-04] MEDS: TOPIRAMATE 25 MG TABLET PO SCH (08:26)
[2022-06-04] MEDS: CLOPIDOGREL 75 MG TABLET PO SCH (08:26)
[2022-06-04] MEDS: INSULIN GLARGINE 100 UNIT/ML SUBCUT SCH (08:26)
[2022-06-04] MEDS: ISOSORBIDE DINITRATE 20 MG TABLET NG SCH ×2 (08:26→21:42)
[2022-06-04] MEDS: ATORVASTATIN 80 MG TABLET PO SCH (08:26)
[2022-06-04] MEDS: METOPROLOL TARTRATE 25 MG TABLET NG SCH ×2 (08:26→21:42)
[2022-06-04] MEDS: cefTRIAXone 1,000 MG in SODIUM CHLORIDE 0.9% 100 ML IV SCH (13:00)
[2022-06-04] MEDS: FLUCONAZOLE INJ 200 MG/100 ML PREMIX IV SCH ×2 (15:17→15:18)
[2022-06-04] MEDS: NYSTATIN 500,000 UNIT/5 ML UDCUP SWISH/SWAL SCH ×2 (17:20→21:43)
[2022-06-04] MEDS: MONTELUKAST 10 MG TABLET PO SCH (21:42)
[2022-06-05] MEDS: ACETYLCYSTEINE 20% 800 MG/4 ML VIAL RESP TX SCH ×3 (00:10→13:50)
[2022-06-05] MEDS: ALBUTEROL/IPRATROPIUM 3 ML NEB RESP TX SCH ×4 (00:10→19:18)
[2022-06-05] MEDS: INSULIN LISPRO 100 UNIT/ML SUBCUT SCH ×6 (02:26→22:40)
[2022-06-05] MEDS: DOXYCYCLINE HYCLATE INJ 100 MG in SODIUM CHLORIDE 0.9% 100 ML IV SCH ×2 (02:36→17:01)
[2022-06-05] MEDS: FAMOTIDINE 20 MG/2 ML VIAL IV SCH ×2 (02:45→14:34)
[2022-06-05] MEDS: LEVOTHYROXINE 50 MCG TABLET PO SCH (05:48)
[2022-06-05 06:32] LABS: Basophils # 0.1 10*3/uL (0.0-0.2); Basophils % 0.4 % (0.0-0.8); Eosinophils # 0.2 10*3/uL (0.0-0.87); Eosinophils % 2.1 % (0.00-10.9); Hematocrit 38.1 VOL% (35.7-47.0); Hemoglobin 11.9 GM/DL (12.0-16.0); Immature Granulocytes % 0.4 %; Immature Granulocytes Absolute 0.05 #; Lymphocytes # 3.1 10*3/uL (1.4-4.0); Lymphocytes % 27.7 % (21.3-54.2); Mean Corpuscular HGB Conc 31.2 GM/DL (32-36); Mean Corpuscular Volume 93.4 FL (87-102); Mean Platelet Volume 11.1 FL (9.6-12.0); Monocytes # 0.8 10*3/uL (0.11-0.8); Monocytes % 6.8 % (1.7-12.7); Neutrophils % 62.6 % (38.7-73.9); Platelet Count 368 T/CUMM (130-400); Red Blood Count 4.08 MC/CUMM (3.8-5.5); Red Cell Distribution Width 12.2 % (9.3-17.3); White Blood Count 11.3 T/CUMM (4-12)
[2022-06-05 07:01] LABS: Calcium 10.3 MG/DL (8.5-10.1); Osmolality,Calculated 302.4 MOS/KG (273-304); Potassium 4.6 MMOL/L (3.5-5.1)
[2022-06-05] MEDS: glipiZIDE 10 MG TABLET PO SCH ×2 (08:58→17:01)
[2022-06-05] MEDS: SACUBITRIL/VALSARTAN 49-51 MG TABLET PO SCH ×2 (08:59→22:40)
[2022-06-05] MEDS: ISOSORBIDE DINITRATE 20 MG TABLET NG SCH ×2 (08:59→22:40)
[2022-06-05] MEDS: ATORVASTATIN 80 MG TABLET PO SCH (08:59)
[2022-06-05] MEDS: NYSTATIN 500,000 UNIT/5 ML UDCUP SWISH/SWAL SCH ×4 (08:59→22:40)
[2022-06-05] MEDS: TOPIRAMATE 25 MG TABLET PO SCH (08:59)
[2022-06-05] MEDS: METOPROLOL TARTRATE 25 MG TABLET NG SCH (08:59)
[2022-06-05] MEDS: INSULIN GLARGINE 100 UNIT/ML SUBCUT SCH (08:59)
[2022-06-05] MEDS: APIXABAN 5 MG TABLET NG SCH ×2 (08:59→22:40)
[2022-06-05] MEDS: CLOPIDOGREL 75 MG TABLET PO SCH (08:59)
[2022-06-05] MEDS: FUROSEMIDE 20 MG TABLET PO SCH (08:59)
[2022-06-05] MEDS: SERTRALINE 50 MG TABLET PO SCH (09:00)
[2022-06-05] MEDS: cefTRIAXone 1,000 MG in SODIUM CHLORIDE 0.9% 100 ML IV SCH (14:35)
[2022-06-05] MEDS: FLUCONAZOLE INJ 200 MG/100 ML PREMIX IV SCH (15:10)
[2022-06-05] MEDS: MONTELUKAST 10 MG TABLET PO SCH (22:40)
[2022-06-05] MEDS: METOPROLOL TARTRATE 50 MG TABLET NG SCH (22:40)
[2022-06-06] MEDS: ACETYLCYSTEINE 20% 800 MG/4 ML VIAL RESP TX SCH ×3 (00:23→07:40)
[2022-06-06] MEDS: ALBUTEROL/IPRATROPIUM 3 ML NEB RESP TX SCH ×4 (00:23→19:36)
[2022-06-06] MEDS: FAMOTIDINE 20 MG/2 ML VIAL IV SCH ×2 (02:41→14:29)
[2022-06-06] MEDS: DOXYCYCLINE HYCLATE INJ 100 MG in SODIUM CHLORIDE 0.9% 100 ML IV SCH ×2 (02:51→15:07)
[2022-06-06] MEDS: INSULIN LISPRO 100 UNIT/ML SUBCUT SCH ×6 (03:16→23:06)
[2022-06-06 05:22] LABS: Basophils % 0.3 % (0.0-0.8); Eosinophils # 0.3 10*3/uL (0.0-0.87); Eosinophils % 2.9 % (0.00-10.9); Hemoglobin 11.5 GM/DL (12.0-16.0); Immature Granulocytes % 0.5 %; Immature Granulocytes Absolute 0.06 #; Lymphocytes # 3.9 10*3/uL (1.4-4.0); Lymphocytes % 33.5 % (21.3-54.2); Mean Corpuscular HGB Conc 31.1 GM/DL (32-36); Mean Corpuscular Volume 93.7 FL (87-102); Mean Platelet Volume 10.8 FL (9.6-12.0); Monocytes # 0.7 10*3/uL (0.11-0.8); Monocytes % 6.2 % (1.7-12.7); Neutrophils % 56.6 % (38.7-73.9); Platelet Count 375 T/CUMM (130-400); Red Blood Count 3.95 MC/CUMM (3.8-5.5); Red Cell Distribution Width 12.3 % (9.3-17.3); White Blood Count 11.6 T/CUMM (4-12)
[2022-06-06] MEDS: LEVOTHYROXINE 50 MCG TABLET PO SCH (05:45)
[2022-06-06 05:56] LABS: Calcium 9.8 MG/DL (8.5-10.1); Potassium 4.1 MMOL/L (3.5-5.1)
[2022-06-06] MEDS: ATORVASTATIN 80 MG TABLET PO SCH (09:18)
[2022-06-06] MEDS: glipiZIDE 10 MG TABLET PO SCH (09:18)
[2022-06-06] MEDS: TOPIRAMATE 25 MG TABLET PO SCH (09:18)
[2022-06-06] MEDS: SERTRALINE 50 MG TABLET PO SCH (09:18)
[2022-06-06] MEDS: NYSTATIN 500,000 UNIT/5 ML UDCUP SWISH/SWAL SCH ×4 (09:19→23:07)
[2022-06-06] MEDS: CLOPIDOGREL 75 MG TABLET PO SCH (09:19)
[2022-06-06] MEDS: METOPROLOL TARTRATE 50 MG TABLET NG SCH ×2 (09:19→23:07)
[2022-06-06] MEDS: FUROSEMIDE 20 MG TABLET PO SCH (09:19)
[2022-06-06] MEDS: APIXABAN 5 MG TABLET NG SCH ×2 (09:19→22:26)
[2022-06-06] MEDS: ISOSORBIDE DINITRATE 20 MG TABLET NG SCH ×2 (09:19→23:05)
[2022-06-06] MEDS: SACUBITRIL/VALSARTAN 49-51 MG TABLET PO SCH ×2 (09:19→22:27)
[2022-06-06] MEDS: INSULIN GLARGINE 100 UNIT/ML SUBCUT SCH ×2 (10:45→10:54)
[2022-06-06] MEDS: cefTRIAXone 1,000 MG in SODIUM CHLORIDE 0.9% 100 ML IV SCH (14:28)
[2022-06-06] MEDS: FAMOTIDINE 20 MG TABLET PO SCH (23:10)
[2022-06-06] MEDS: MONTELUKAST 10 MG TABLET PO SCH (23:10)
[2022-06-07] MEDS: ALBUTEROL/IPRATROPIUM 3 ML NEB RESP TX SCH ×4 (00:55→19:40)
[2022-06-07] MEDS: ACETYLCYSTEINE 20% 800 MG/4 ML VIAL RESP TX SCH ×3 (00:55→14:00)
[2022-06-07] MEDS: INSULIN LISPRO 100 UNIT/ML SUBCUT SCH ×6 (01:22→22:37)
[2022-06-07] MEDS: DOXYCYCLINE HYCLATE INJ 100 MG in SODIUM CHLORIDE 0.9% 100 ML IV SCH ×2 (02:58→17:07)
[2022-06-07] MEDS: LEVOTHYROXINE 50 MCG TABLET PO SCH (07:17)
[2022-06-07 08:11] LABS: Basophils % 0.3 % (0.0-0.8); Eosinophils # 0.4 10*3/uL (0.0-0.87); Eosinophils % 3.7 % (0.00-10.9); Hematocrit 37.1 VOL% (35.7-47.0); Hemoglobin 11.5 GM/DL (12.0-16.0); Immature Granulocytes % 0.3 %; Immature Granulocytes Absolute 0.03 #; Lymphocytes # 4.2 10*3/uL (1.4-4.0); Lymphocytes % 35.7 % (21.3-54.2); Mean Corpuscular Volume 94.4 FL (87-102); Monocytes # 0.6 10*3/uL (0.11-0.8); Monocytes % 5.1 % (1.7-12.7); Neutrophils % 54.9 % (38.7-73.9); Platelet Count 366 T/CUMM (130-400); Red Blood Count 3.93 MC/CUMM (3.8-5.5); Red Cell Distribution Width 11.9 % (9.3-17.3); White Blood Count 11.8 T/CUMM (4-12)
[2022-06-07 08:30] LABS: Calcium 9.5 MG/DL (8.5-10.1); Osmolality,Calculated 281.5 MOS/KG (273-304); Potassium 4.4 MMOL/L (3.5-5.1)
[2022-06-07] MEDS: NYSTATIN 500,000 UNIT/5 ML UDCUP SWISH/SWAL SCH ×4 (09:01→22:37)
[2022-06-07] MEDS: INSULIN GLARGINE 100 UNIT/ML SUBCUT SCH (09:01)
[2022-06-07] MEDS: TOPIRAMATE 25 MG TABLET PO SCH (09:01)
[2022-06-07] MEDS: APIXABAN 5 MG TABLET NG SCH ×2 (09:01→20:59)
[2022-06-07] MEDS: FUROSEMIDE 20 MG TABLET PO SCH (09:02)
[2022-06-07] MEDS: ATORVASTATIN 80 MG TABLET PO SCH (09:02)
[2022-06-07] MEDS: ISOSORBIDE DINITRATE 20 MG TABLET NG SCH ×2 (09:02→21:00)
[2022-06-07] MEDS: SERTRALINE 50 MG TABLET PO SCH (09:02)
[2022-06-07] MEDS: SACUBITRIL/VALSARTAN 49-51 MG TABLET PO SCH ×2 (09:02→20:59)
[2022-06-07] MEDS: CLOPIDOGREL 75 MG TABLET PO SCH (09:02)
[2022-06-07] MEDS: METOPROLOL TARTRATE 50 MG TABLET NG SCH ×2 (09:02→20:59)
[2022-06-07] MEDS: FAMOTIDINE 20 MG TABLET PO SCH ×2 (09:02→21:00)
[2022-06-07] MEDS: cefTRIAXone 1,000 MG in SODIUM CHLORIDE 0.9% 100 ML IV SCH (16:23)
[2022-06-07] MEDS: MONTELUKAST 10 MG TABLET PO SCH (20:59)
[2022-06-08] MEDS ORDERED: ACETYLCYSTEINE 20% 800 MG/4 ML VIAL ONE (00:23)
[2022-06-08] MEDS: INSULIN LISPRO 100 UNIT/ML SUBCUT SCH ×4 (00:24→12:27)
[2022-06-08] MEDS ORDERED: ALBUTEROL/IPRATROPIUM 3 ML NEB RESP TX ONE (00:24)
[2022-06-08] MEDS: ACETYLCYSTEINE 20% 800 MG/4 ML VIAL RESP TX SCH ×3 (00:35→13:30)
[2022-06-08] MEDS: ALBUTEROL/IPRATROPIUM 3 ML NEB RESP TX SCH ×3 (00:35→13:29)
[2022-06-08] MEDS: DOXYCYCLINE HYCLATE INJ 100 MG in SODIUM CHLORIDE 0.9% 100 ML IV SCH (02:32)
[2022-06-08 05:58] LABS: Basophils % 0.4 % (0.0-0.8); Eosinophils # 0.2 10*3/uL (0.0-0.87); Eosinophils % 1.8 % (0.00-10.9); Hematocrit 39.6 VOL% (35.7-47.0); Hemoglobin 12.9 GM/DL (12.0-16.0); Immature Granulocytes % 0.3 %; Immature Granulocytes Absolute 0.03 #; Lymphocytes # 3.4 10*3/uL (1.4-4.0); Lymphocytes % 35.4 % (21.3-54.2); Mean Corpuscular HGB Conc 32.6 GM/DL (32-36); Mean Corpuscular Volume 90.2 FL (87-102); Mean Platelet Volume 11.2 FL (9.6-12.0); Monocytes # 0.5 10*3/uL (0.11-0.8); Monocytes % 5.1 % (1.7-12.7); Platelet Count 332 T/CUMM (130-400); Red Blood Count 4.39 MC/CUMM (3.8-5.5); White Blood Count 9.6 T/CUMM (4-12)
[2022-06-08 06:14] LABS: Calcium 9.9 MG/DL (8.5-10.1); Osmolality,Calculated 278.7 MOS/KG (273-304)
[2022-06-08] MEDS: LEVOTHYROXINE 50 MCG TABLET PO SCH (07:05)
[2022-06-08] MEDS: CLOPIDOGREL 75 MG TABLET PO SCH (08:40)
[2022-06-08] MEDS: FAMOTIDINE 20 MG TABLET PO SCH (08:40)
[2022-06-08] MEDS: FUROSEMIDE 20 MG TABLET PO SCH (08:40)
[2022-06-08] MEDS: APIXABAN 5 MG TABLET NG SCH (08:40)
[2022-06-08] MEDS: ATORVASTATIN 80 MG TABLET PO SCH (08:40)
[2022-06-08] MEDS: SACUBITRIL/VALSARTAN 49-51 MG TABLET PO SCH (08:40)
[2022-06-08] MEDS: TOPIRAMATE 25 MG TABLET PO SCH (08:40)
[2022-06-08] MEDS: ISOSORBIDE DINITRATE 20 MG TABLET NG SCH (08:41)
[2022-06-08] MEDS: METOPROLOL TARTRATE 50 MG TABLET NG SCH (08:41)
[2022-06-08] MEDS: NYSTATIN 500,000 UNIT/5 ML UDCUP SWISH/SWAL SCH ×2 (08:41→12:28)
[2022-06-08] MEDS: SERTRALINE 50 MG TABLET PO SCH (08:41)
[2022-06-08] MEDS ORDERED: INSULIN GLARGINE 100 UNIT/ML SUBCUT SCH ×3 (09:00)
[2022-06-08 11:42] VITALS: BP 100/58
== END 2022-06-08 13:29 | disposition swing bed (61) | DRG 871 ==
LOC: EDUNIT# → EDBD → N.ED 21:07 → N.ICU 23:37 → SUATTDRO 23:37 → N.ICU 05-27 00:20 → N.3E 05-31 22:56
PROVIDERS: ADMIT Family Medicine; ATTEND Internal Medicine

== ENCOUNTER 2022-11-08 02:44 | Observation (INO) ==
[2022-11-08] MEDS ORDERED: NITROGLYCERIN 2% OINT 1 INCH/GM PACK TOP STA (03:46)
[2022-11-08] MEDS ORDERED: ONDANSETRON 4 MG/2 ML VIAL IV STA (03:46)
[2022-11-08] MEDS ORDERED: MORPHINE 2 MG/1 ML SYRINGE IV STA (03:46)
[2022-11-08 03:47] LABS: Basophils # 0.1 10*3/uL (0.0-0.2); Basophils % 0.5 % (0.0-0.8); Eosinophils # 0.3 10*3/uL (0.0-0.87); Eosinophils % 2.7 % (0.00-10.9); Hematocrit 41.9 VOL% (35.7-47.0); Immature Granulocytes % 0.4 %; Immature Granulocytes Absolute 0.04 #; Lymphocytes % 26.9 % (21.3-54.2); Mean Corpuscular HGB Conc 33.4 GM/DL (32-36); Mean Corpuscular Volume 87.7 FL (87-102); Mean Platelet Volume 10.3 FL (9.6-12.0); Monocytes # 0.8 10*3/uL (0.11-0.8); Monocytes % 6.9 % (1.7-12.7); Neutrophils % 62.6 % (38.7-73.9); Platelet Count 171 T/CUMM (130-400); Red Blood Count 4.78 MC/CUMM (3.8-5.5); White Blood Count 11.06 T/CUMM (4-12)
[2022-11-08 04:06] LABS: Albumin 3.8 G/DL (3.4-5.0); Bilirubin,Total 0.8 MG/DL (0.20-1.00); Calcium 9.5 MG/DL (8.5-10.1); Osmolality,Calculated 276.2 MOS/KG (273-304); Potassium 4.7 MMOL/L (3.5-5.1)
[2022-11-08] MEDS ORDERED: ACETAMINOPHEN 325 MG TABLET PO PRN (04:39)
[2022-11-08] MEDS ORDERED: MORPHINE 2 MG/1 ML SYRINGE IV PRN (04:39)
[2022-11-08] MEDS ORDERED: DEXTROSE 10% 250 ML BAG IV PRN (04:59)
[2022-11-08] MEDS ORDERED: NITROGLYCERIN 2% OINT 1 INCH/GM PACK TOP SCH (05:00)
[2022-11-08 05:05] LABS: Risk Ratio 5.98; VLDL Cholesterol 46.2 MG/DL
[2022-11-08] MEDS ORDERED: INSULIN REGULAR 100 UNIT/ML SUBCUT SCH (07:30)
[2022-11-08] MEDS ORDERED: ENOXAPARIN 40 MG/0.4 ML SYRINGE SUBCUT SCH (09:00)
[2022-11-08] MEDS ORDERED: PANTOPRAZOLE 40 MG TABLET PO SCH (09:00)
[2022-11-08 12:01] VITALS: BP 128/66
== END 2022-11-08 11:45 | disposition home health service (06) ==
LOC: EDUNIT# → EDBD → SUATTDRO → N.EDINP 02:44 → N.ED 02:44 → N.EDINP 11:45
PROVIDERS: ADMIT Internal Medicine; ATTEND Internal Medicine